=== PATIENT | female | born 1960 | race Caucasian/White ===

== ENCOUNTER 2017-06-06 10:54 | Inpatient (IN) | payer MEDICARE, MEDICAID ==
[~2017-06-06] VITALS: Ht 5619.3 cm; Wt 135.7 kg
[~2017-06-06 10:54] MED LIST: ALBU8HFA PO; APIX5TAB3 PO; ARIP10TA15 PO; BUS15T PO; CLOP75TA15 PO; DOXE50CA4 PO; EZET10TA14 PO; FURO-150 PO; GABA-532 PO; LEVO25TA2 PO; NEBI10TA4 PO; POTA8CAP9 PO; ROPI2TAB4 PO; SERT100T PO; SIMV40TA4 PO; TIZA4TAB11 PO
[2017-06-06] MEDS ORDERED: HYDROmorphone 1 mg/ml syringe IV ONE (11:20)
[2017-06-06] MEDS ORDERED: ondansetron/PF 4mg/2ml inj IV ONE (11:20)
[2017-06-06 11:36] LABS: BASOPHILS # (AUTO) 0.1 X10'3 (0-0.2); BASOPHILS % (AUTO) 1.4 % (0-1); EOSINOPHILS # (AUTO) 0.1 X10'3 (0-0.9); EOSINOPHILS % (AUTO) 1.4 % (0-6); HEMATOCRIT 39.9 % (35.0-45.0); HEMOGLOBIN 13.9 g/dl (12.0-16.0); LYMPHOCYTES # (AUTO) 1.5 X10'3 (1.1-4.8); LYMPHOCYTES % (AUTO) 20.1 % (21-51); MEAN CORPUSCULAR HEMOGLOBIN 29.4 PG (27.0-31.0); MEAN CORPUSCULAR HGB CONC 34.9 % (33.0-36.5); MEAN CORPUSCULAR VOLUME 84.3 FL (78-98); MEAN PLATELET VOLUME 8.8 FL (7.4-10.4); MONOCYTES # (AUTO) 0.2 X10'3 (0-0.9); MONOCYTES % (AUTO) 2.2 % (2-12); NEUTROPHILS # (AUTO) 5.5 X10'3 (1.8-7.7); NEUTROPHILS % (AUTO) 74.9 % (42-75); PLATELET COUNT 153 X10'3 (140-440); RED BLOOD COUNT 4.73 X10'6 (4.20-5.60); RED CELL DISTRIBUTION WIDTH 15.8 % (11.5-14.5); WHITE BLOOD COUNT 7.4 X10'3 (4.5-11.0)
[2017-06-06 11:46] LABS: PARTIAL THROMBOPLASTIN TIME 31 SECONDS (22-32); PROTHROMBIN TIME 10.7 SECONDS (9.0-12.0)
[2017-06-06 11:51] LABS: ALANINE AMINOTRANSFERASE 29 U/L (12-78); ALBUMIN 3.6 G/DL (3.4-5.0); ALBUMIN/GLOBULIN RATIO 0.8 (1.1-1.5); ALKALINE PHOSPHATASE 86 IU/L (46-116); ANION GAP 6 (8-16); ASPARTATE AMINO TRANSFERASE 20 U/L (10-37); BILIRUBIN,TOTAL 0.6 MG/DL (0.1-1.0); BLOOD UREA NITROGEN 18 MG/DL (7-18); CALCIUM 8.9 MG/DL (8.5-10.1); CHLORIDE 107 MMOL/L (99-107); GLUCOSE 110 MG/DL (70-104); SODIUM 141 MMOL/L (135-145); TOTAL CARBON DIOXIDE 28.1 MMOL/L (24-32); eGFR 57 ML/MIN
[2017-06-06] MEDS ORDERED: HYDROmorphone 2mg/ml vial IV ONE (11:55)
[2017-06-06 12:03] LABS: CLARITY,URINE Clear (Clear); COLOR,URINE Yellow (Yellow); GLUCOSE, URINE Negative (Neg); KETONES,URINE Negative (Neg); LEUKOCYTE ESTERASE ,URINE Negative (Neg); NITRITES, URINE Negative (Neg); OCCULT BLOOD,URINE Negative (Neg); PH,URINE 5.5 (4.8-8.0); PROTEIN,URINE Negative (Neg); UA COLLECTION TYPE CLN CATCH MIDSTREAM
[2017-06-06] MEDS ORDERED: ondansetron/PF 4mg/2ml inj IV PRN (13:05)
[2017-06-06] MEDS ORDERED: diphenhydrAMINE 25mg capsule PO PRN (13:05)
[2017-06-06] MEDS ORDERED: tizanidine 4mg tablet PO PRN (13:05)
[2017-06-06] MEDS ORDERED: magnesium 4gm in 100ml NS 100 ML IV PRN (13:05)
[2017-06-06] MEDS ORDERED: potassium Cl 40MEQ/NS 500ml 500 ML IV PRN ×2 (13:05)
[2017-06-06] MEDS ORDERED: HYDROcodone/acetaminophen 5mg/325mg tablet PO PRN (13:05)
[2017-06-06] MEDS ORDERED: acetaminophen 325mg tablet PO PRN ×2 (13:05)
[2017-06-06] MEDS ORDERED: magnesium Cl slow-release 64mg tablet PO PRN (13:05)
[2017-06-06] MEDS ORDERED: magnesium 2GM in 50ml NS 50 ML IV PRN (13:05)
[2017-06-06] MEDS ORDERED: non-formulary drug (albuterol inhaler (Pro-Air Inhaler) 2 PUFFS) PO PRN (13:05)
[2017-06-06] MEDS ORDERED: morphine 2 MG/ML inj. syringe IV PRN (13:05)
[2017-06-06] MEDS ORDERED: magnesium hydroxide 30ml (MOM) UD suspension PO PRN (13:05)
[2017-06-06] MEDS ORDERED: potassium Cl 20 mEq SR tablet PO PRN ×2 (13:05)
[2017-06-06] MEDS ORDERED: mag hydrox/Alum hydrox/simeth 30ml oral suspension PO PRN (13:05)
[2017-06-06] MEDS ORDERED: albuterol 2.5 MG/3 ML nebule NEB PRN (13:25)
[2017-06-06] MEDS: HYDROmorphone 2mg/ml vial IV PRN (16:02)
[2017-06-06 17:00] VITALS: BP 152/83
[2017-06-06 18:30] VITALS: BP 112/91
[2017-06-06] MEDS ORDERED: hydrALAZINE 20mg/ml inj. IV PRN (19:25)
[2017-06-06] MEDS: ROPINIRole 1mg tablet PO SCH (20:50)
[2017-06-06] MEDS: gabapentin 300mg capsule PO SCH (20:50)
[2017-06-06] MEDS: docusate sod 100mg capsule PO SCH (20:50)
[2017-06-06] MEDS: busPIRone 15mg tablet PO SCH (20:50)
[2017-06-06] MEDS: atorvastatin 20mg tablet PO SCH (20:50)
[2017-06-06] MEDS: HYDROcodone/acetaminophen 10/325mg tab PO PRN (20:51)
[2017-06-06] MEDS: apixaban 5mg tablet PO SCH (20:59)
[2017-06-06] MEDS: doxepin 25mg capsule PO SCH (20:59)
[2017-06-06] MEDS ORDERED: non-formulary drug (Ropinirole Hcl (Requip) 1 TAB) PO SCH (21:00)
[2017-06-06] MEDS ORDERED: non-formulary drug (Doxepin HCl 1 CAP) PO SCH (21:00)
[2017-06-06 23:00] VITALS: BP 141/82
[2017-06-07 03:00] VITALS: BP 173/80
[2017-06-07] MEDS: HYDROcodone/acetaminophen 10/325mg tab PO PRN ×4 (05:25→20:47)
[2017-06-07 06:00] VITALS: BP 157/76
[2017-06-07 06:14] LABS: BASOPHILS % (AUTO) 0.4 % (0-1); EOSINOPHILS # (AUTO) 0.2 X10'3 (0-0.9); EOSINOPHILS % (AUTO) 2.3 % (0-6); HEMATOCRIT 40.3 % (35.0-45.0); LYMPHOCYTES # (AUTO) 1.3 X10'3 (1.1-4.8); LYMPHOCYTES % (AUTO) 18.2 % (21-51); MEAN CORPUSCULAR HEMOGLOBIN 29.2 PG (27.0-31.0); MEAN CORPUSCULAR HGB CONC 34.7 % (33.0-36.5); MEAN CORPUSCULAR VOLUME 84.1 FL (78-98); MEAN PLATELET VOLUME 8.6 FL (7.4-10.4); MONOCYTES # (AUTO) 0.4 X10'3 (0-0.9); MONOCYTES % (AUTO) 5.1 % (2-12); NEUTROPHILS # (AUTO) 5.3 X10'3 (1.8-7.7); PLATELET COUNT 171 X10'3 (140-440); RED BLOOD COUNT 4.79 X10'6 (4.20-5.60); RED CELL DISTRIBUTION WIDTH 15.6 % (11.5-14.5); WHITE BLOOD COUNT 7.2 X10'3 (4.5-11.0)
[2017-06-07 06:24] LABS: ALBUMIN 3.5 G/DL (3.4-5.0); ANION GAP 7 (8-16); BLOOD UREA NITROGEN 16 MG/DL (7-18); CALCIUM 9.2 MG/DL (8.5-10.1); CHLORIDE 106 MMOL/L (99-107); GLUCOSE 111 MG/DL (70-104); MAGNESIUM 1.8 MG/DL (1.5-2.4); POTASSIUM 4.5 MMOL/L (3.5-5.1); SODIUM 142 MMOL/L (135-145); TOTAL CARBON DIOXIDE 29.2 MMOL/L (24-32); eGFR 73 ML/MIN
[2017-06-07] MEDS: K and/or MAG REPLACEMENT MC SCH (06:59)
[2017-06-07] MEDS: potassium chloride 8mEq ER tablet PO SCH (07:00)
[2017-06-07] MEDS ORDERED: SERTRALINE HCL 200 MG PO SCH (08:00)
[2017-06-07] MEDS ORDERED: POTASSIUM CHLORIDE 8 MEQ PO SCH (08:00)
[2017-06-07] MEDS ORDERED: ARIPIPRAZOLE 20 MG PO SCH (08:00)
[2017-06-07] MEDS ORDERED: NEBIVOLOL HCL 10 MG PO SCH (08:00)
[2017-06-07] MEDS: aripiprazole 5mg tablet PO SCH (08:08)
[2017-06-07] MEDS: furosemide 20MG tablet PO SCH (08:09)
[2017-06-07] MEDS: sertraline 50mg tablet PO SCH (08:09)
[2017-06-07] MEDS: docusate sod 100mg capsule PO SCH ×2 (08:09→20:45)
[2017-06-07] MEDS: ezetimibe 10mg tablet PO SCH (08:10)
[2017-06-07] MEDS: busPIRone 15mg tablet PO SCH ×2 (08:10→20:46)
[2017-06-07] MEDS: gabapentin 300mg capsule PO SCH ×3 (08:10→20:46)
[2017-06-07] MEDS: clopidogrel 75mg tablet PO SCH (08:10)
[2017-06-07] MEDS: levoTHYROXINE 25mcg tablet PO SCH (08:11)
[2017-06-07] MEDS: apixaban 5mg tablet PO SCH ×2 (08:13→20:46)
[2017-06-07] MEDS ORDERED: FLU VACC QS2017-18 36MOS UP/PF 60 MCG/0.5 ML SYRINGE IMVAC ONE (10:00)
[2017-06-07] MEDS ORDERED: pneumococcal 23-VAL P-sac vacc 25 mcg/0.5ml vial IMVAC ONE (10:00)
[2017-06-07 11:00] VITALS: BP 124/67
[2017-06-07 15:00] VITALS: BP 148/74
[2017-06-07 19:00] VITALS: BP 109/61
[2017-06-07] MEDS: atorvastatin 20mg tablet PO SCH (20:45)
[2017-06-07] MEDS: ROPINIRole 1mg tablet PO SCH (20:45)
[2017-06-07] MEDS: doxepin 25mg capsule PO SCH (20:47)
[2017-06-07 23:00] VITALS: BP 134/71
[2017-06-08] MEDS: HYDROcodone/acetaminophen 10/325mg tab PO PRN ×2 (02:36→14:02)
[2017-06-08 03:00] VITALS: BP 151/74
[2017-06-08 06:00] VITALS: BP 142/84
[2017-06-08] MEDS: gabapentin 300mg capsule PO SCH ×3 (07:53→21:25)
[2017-06-08] MEDS: clopidogrel 75mg tablet PO SCH (07:53)
[2017-06-08] MEDS: docusate sod 100mg capsule PO SCH ×2 (07:53→19:16)
[2017-06-08] MEDS: aripiprazole 5mg tablet PO SCH (07:53)
[2017-06-08] MEDS: levoTHYROXINE 25mcg tablet PO SCH (07:53)
[2017-06-08] MEDS: apixaban 5mg tablet PO SCH ×2 (07:54→19:17)
[2017-06-08] MEDS: ezetimibe 10mg tablet PO SCH (07:54)
[2017-06-08] MEDS: busPIRone 15mg tablet PO SCH ×2 (07:54→19:16)
[2017-06-08] MEDS: potassium chloride 8mEq ER tablet PO SCH (07:54)
[2017-06-08] MEDS: furosemide 20MG tablet PO SCH (07:54)
[2017-06-08] MEDS: sertraline 50mg tablet PO SCH (07:54)
[2017-06-08] MEDS: K and/or MAG REPLACEMENT MC SCH (08:00)
[2017-06-08] MEDS: LORazepam 0.5 MG tablet PO PRN ×2 (09:17→19:17)
[2017-06-08 11:00] VITALS: BP 144/59
[2017-06-08 19:00] VITALS: BP 128/86
[2017-06-08] MEDS: atorvastatin 20mg tablet PO SCH (21:25)
[2017-06-08] MEDS: ROPINIRole 1mg tablet PO SCH (21:26)
[2017-06-08] MEDS: doxepin 25mg capsule PO SCH (21:27)
[2017-06-08 23:00] VITALS: BP 126/64
[2017-06-08 23:59] LABS: BASOPHILS # (AUTO) 0.1 X10'3 (0-0.2); BASOPHILS % (AUTO) 0.7 % (0-1); EOSINOPHILS # (AUTO) 0.2 X10'3 (0-0.9); EOSINOPHILS % (AUTO) 2.5 % (0-6); HEMATOCRIT 40.3 % (35.0-45.0); HEMOGLOBIN 13.5 g/dl (12.0-16.0); MEAN CORPUSCULAR HEMOGLOBIN 28.5 PG (27.0-31.0); MEAN CORPUSCULAR HGB CONC 33.6 % (33.0-36.5); MEAN PLATELET VOLUME 8.6 FL (7.4-10.4); MONOCYTES # (AUTO) 0.6 X10'3 (0-0.9); MONOCYTES % (AUTO) 7.9 % (2-12); NEUTROPHILS % (AUTO) 63.9 % (42-75); PLATELET COUNT 145 X10'3 (140-440); RED BLOOD COUNT 4.74 X10'6 (4.20-5.60); RED CELL DISTRIBUTION WIDTH 15.4 % (11.5-14.5); WHITE BLOOD COUNT 7.8 X10'3 (4.5-11.0)
[2017-06-09] VITALS (7 sets, daily range): BP systolic 99–150; BP diastolic 62–106
[2017-06-09 00:05] LABS: ALBUMIN 3.2 G/DL (3.4-5.0); ANION GAP 5 (8-16); BLOOD UREA NITROGEN 16 MG/DL (7-18); BUN/CREATININE RATIO 17.8 (6.6-38.0); CHLORIDE 105 MMOL/L (99-107); GLUCOSE 114 MG/DL (70-104); MAGNESIUM 1.7 MG/DL (1.5-2.4); POTASSIUM 3.9 MMOL/L (3.5-5.1); SODIUM 140 MMOL/L (135-145); TOTAL CARBON DIOXIDE 29.8 MMOL/L (24-32); eGFR 64 ML/MIN
[2017-06-09 06:18] LABS: BASOPHILS % (AUTO) 0.6 % (0-1); EOSINOPHILS # (AUTO) 0.2 X10'3 (0-0.9); EOSINOPHILS % (AUTO) 3.9 % (0-6); HEMATOCRIT 38.7 % (35.0-45.0); HEMOGLOBIN 13.3 g/dl (12.0-16.0); LYMPHOCYTES # (AUTO) 1.7 X10'3 (1.1-4.8); MEAN CORPUSCULAR HEMOGLOBIN 28.9 PG (27.0-31.0); MEAN CORPUSCULAR HGB CONC 34.3 % (33.0-36.5); MEAN CORPUSCULAR VOLUME 84.4 FL (78-98); MEAN PLATELET VOLUME 8.7 FL (7.4-10.4); MONOCYTES # (AUTO) 0.5 X10'3 (0-0.9); MONOCYTES % (AUTO) 7.2 % (2-12); NEUTROPHILS # (AUTO) 3.9 X10'3 (1.8-7.7); NEUTROPHILS % (AUTO) 61.3 % (42-75); PLATELET COUNT 159 X10'3 (140-440); RED BLOOD COUNT 4.59 X10'6 (4.20-5.60); RED CELL DISTRIBUTION WIDTH 15.8 % (11.5-14.5); WHITE BLOOD COUNT 6.3 X10'3 (4.5-11.0)
[2017-06-09 07:28] LABS: ALBUMIN 3.2 G/DL (3.4-5.0); ANION GAP 10 (8-16); BLOOD UREA NITROGEN 15 MG/DL (7-18); CHLORIDE 105 MMOL/L (99-107); GLUCOSE 109 MG/DL (70-104); MAGNESIUM 1.6 MG/DL (1.5-2.4); POTASSIUM 3.7 MMOL/L (3.5-5.1); SODIUM 142 MMOL/L (135-145); TOTAL CARBON DIOXIDE 26.7 MMOL/L (24-32); eGFR 57 ML/MIN
[2017-06-09] MEDS: busPIRone 15mg tablet PO SCH ×2 (07:33→20:02)
[2017-06-09] MEDS: sertraline 50mg tablet PO SCH (07:33)
[2017-06-09] MEDS: apixaban 5mg tablet PO SCH (07:33)
[2017-06-09] MEDS: aripiprazole 5mg tablet PO SCH (07:33)
[2017-06-09] MEDS: potassium chloride 8mEq ER tablet PO SCH (07:33)
[2017-06-09] MEDS: docusate sod 100mg capsule PO SCH ×2 (07:33→20:03)
[2017-06-09] MEDS: clopidogrel 75mg tablet PO SCH (07:34)
[2017-06-09] MEDS: ezetimibe 10mg tablet PO SCH (07:34)
[2017-06-09] MEDS: levoTHYROXINE 25mcg tablet PO SCH (07:34)
[2017-06-09] MEDS: gabapentin 300mg capsule PO SCH ×3 (07:34→21:23)
[2017-06-09] MEDS: furosemide 20MG tablet PO SCH (07:34)
[2017-06-09] MEDS: LORazepam 0.5 MG tablet PO PRN ×2 (07:36→17:15)
[2017-06-09] MEDS: K and/or MAG REPLACEMENT MC SCH (08:00)
[2017-06-09] MEDS: HYDROcodone/acetaminophen 10/325mg tab PO PRN (11:33)
[2017-06-09] MEDS: nystatin 15 GM powder TP SCH ×2 (12:04→21:23)
[2017-06-09] MEDS ORDERED: heparin 10,000 units/1 ML INJ IV ONE (15:05)
[2017-06-09] MEDS ORDERED: heparin 10,000 units/1 ML INJ IV PRN (15:05)
[2017-06-09] MEDS: HYDROmorphone 2mg/ml vial IV PRN (20:02)
[2017-06-09] MEDS: doxepin 25mg capsule PO SCH (21:22)
[2017-06-09] MEDS: atorvastatin 20mg tablet PO SCH (21:23)
[2017-06-09] MEDS: ROPINIRole 1mg tablet PO SCH (21:23)
[2017-06-10 06:00] VITALS: BP 125/63
[2017-06-10] MEDS: HYDROmorphone 1 mg/ml syringe IV PRN ×2 (06:04→11:07)
[2017-06-10 07:49] LABS: BASOPHILS % (AUTO) 0.4 % (0-1); EOSINOPHILS # (AUTO) 0.3 X10'3 (0-0.9); EOSINOPHILS % (AUTO) 3.6 % (0-6); HEMATOCRIT 39.4 % (35.0-45.0); HEMOGLOBIN 13.4 g/dl (12.0-16.0); LYMPHOCYTES # (AUTO) 1.8 X10'3 (1.1-4.8); LYMPHOCYTES % (AUTO) 25.1 % (21-51); MEAN CORPUSCULAR HGB CONC 34.1 % (33.0-36.5); MEAN PLATELET VOLUME 9.1 FL (7.4-10.4); MONOCYTES # (AUTO) 0.4 X10'3 (0-0.9); MONOCYTES % (AUTO) 6.4 % (2-12); NEUTROPHILS # (AUTO) 4.5 X10'3 (1.8-7.7); NEUTROPHILS % (AUTO) 64.5 % (42-75); PLATELET COUNT 146 X10'3 (140-440); RED BLOOD COUNT 4.64 X10'6 (4.20-5.60); RED CELL DISTRIBUTION WIDTH 15.9 % (11.5-14.5)
[2017-06-10] MEDS: K and/or MAG REPLACEMENT MC SCH (08:00)
[2017-06-10 08:01] LABS: ALBUMIN 3.3 G/DL (3.4-5.0); ANION GAP 9 (8-16); BLOOD UREA NITROGEN 14 MG/DL (7-18); CHLORIDE 106 MMOL/L (99-107); MAGNESIUM 1.6 MG/DL (1.5-2.4); POTASSIUM 3.9 MMOL/L (3.5-5.1); SODIUM 143 MMOL/L (135-145); TOTAL CARBON DIOXIDE 28.1 MMOL/L (24-32); eGFR 57 ML/MIN
[2017-06-10 08:04] LABS: GLUCOSE 106 MG/DL (70-104)
[2017-06-10] MEDS: aripiprazole 5mg tablet PO SCH (08:21)
[2017-06-10] MEDS: potassium chloride 8mEq ER tablet PO SCH (08:22)
[2017-06-10] MEDS: furosemide 20MG tablet PO SCH (08:22)
[2017-06-10] MEDS: levoTHYROXINE 25mcg tablet PO SCH (08:22)
[2017-06-10] MEDS: ezetimibe 10mg tablet PO SCH (08:22)
[2017-06-10] MEDS: docusate sod 100mg capsule PO SCH (08:23)
[2017-06-10] MEDS: gabapentin 300mg capsule PO SCH ×2 (08:23→12:50)
[2017-06-10] MEDS: sertraline 50mg tablet PO SCH (08:23)
[2017-06-10] MEDS: busPIRone 15mg tablet PO SCH (08:23)
[2017-06-10] MEDS: HYDROcodone/acetaminophen 10/325mg tab PO PRN ×2 (08:25→12:51)
[2017-06-10] MEDS: nystatin 15 GM powder TP SCH ×2 (08:25→12:52)
[2017-06-10 11:00] VITALS: BP 109/56
[2017-06-10 15:00] VITALS: BP 104/44
[2017-06-10] MEDS: LORazepam 0.5 MG tablet PO PRN (15:06)
== END 2017-06-10 17:36 | disposition short-term general hospital (02) | DRG 315 ==
LOC: ER 10:55 → ED HOLD 13:02 → EDBEDREQTM 14:13 → PCU 3S 17:30
PROVIDERS: ADMIT Internal Medicine; ATTEND Internal Medicine
DX: T82.898A Other specified complication of vascular prosthetic devices, implants and grafts, initial encounter (principal); Z68.42 Body mass index [BMI] 45.0-49.9, adult; E11.22 Type 2 diabetes mellitus with diabetic chronic kidney disease; E11.51 Type 2 diabetes mellitus with diabetic peripheral angiopathy without gangrene; Y82.8 Other medical devices associated with adverse incidents; E03.9 Hypothyroidism, unspecified; E66.9 Obesity, unspecified; E78.5 Hyperlipidemia, unspecified; F32.9 Major depressive disorder, single episode, unspecified; F41.9 Anxiety disorder, unspecified; I12.9 Hypertensive chronic kidney disease with stage 1 through stage 4 chronic kidney disease, or unspecified chronic kidney disease; I99.8 Other disorder of circulatory system; J44.9 Chronic obstructive pulmonary disease, unspecified; N18.9 Chronic kidney disease, unspecified; Z79.899 Other long term (current) drug therapy; Z79.01 Long term (current) use of anticoagulants; Z88.5 Allergy status to narcotic agent; Z87.19 Personal history of other diseases of the digestive system; Z87.891 Personal history of nicotine dependence; Z83.3 Family history of diabetes mellitus; Z80.9 Family history of malignant neoplasm, unspecified; Y92.89 Other specified places as the place of occurrence of the external cause; Z23 Encounter for immunization
CPT/HCPCS: 36415; 71045; 80048; 80053; 81003; 83735; 85025; 85610; 85730; 87070; 90732; 93005; 94760; 96374; 96375; 99285; J1170; J1644; J2270; J2405; Q2037

== ENCOUNTER 2017-06-13 13:49 | Inpatient (IN) | payer MEDICARE, MEDICAID ==
[2017-06-13 15:15] VITALS: BP 141/88
[2017-06-13] MEDS ORDERED: HYDROmorphone 1 mg/ml syringe IV PRN (17:35)
[2017-06-13] MEDS ORDERED: magnesium hydroxide 30ml (MOM) UD suspension PO PRN (17:35)
[2017-06-13] MEDS ORDERED: insulin Lispro (HumaLOG) vial - multi-dose SQ SCH (17:35)
[2017-06-13] MEDS ORDERED: ondansetron/PF 4mg/2ml inj IV PRN (17:35)
[2017-06-13] MEDS ORDERED: acetaminophen 325mg tablet PO PRN ×2 (17:35)
[2017-06-13] MEDS ORDERED: dextrose ORAL solution 15 GM/59 ML bottle PO PRN ×2 (17:35)
[2017-06-13] MEDS ORDERED: MESSAGE TO PHARMACY PO ONE (17:35)
[2017-06-13] MEDS ORDERED: mag hydrox/Alum hydrox/simeth 30ml oral suspension PO PRN (17:35)
[2017-06-13] MEDS ORDERED: glucagon, human recombinant 1mg kit SUBCUT PRN (17:35)
[2017-06-13] MEDS ORDERED: dextrose 50%-water 50ml dispensing syringe IV PRN ×2 (17:35)
[2017-06-13] MEDS ORDERED: bisacodyl 10mg suppository rectal RC PRN (17:35)
[2017-06-13] MEDS ORDERED: tizanidine 4mg tablet PO PRN (17:40)
[2017-06-13] MEDS ORDERED: non-formulary drug (albuterol inhaler (Pro-Air Inhaler) 2 PUFFS) PO PRN (17:40)
[2017-06-13] MEDS ORDERED: albuterol 2.5 MG/3 ML nebule NEB PRN (17:55)
[2017-06-13] MEDS: HYDROmorphone 2mg tablet PO PRN (18:38)
[2017-06-13 20:00] VITALS: BP 135/70
[2017-06-13] MEDS: docusate sod 100mg capsule PO SCH (20:00)
[2017-06-13] MEDS ORDERED: doxepin 25mg capsule PO SCH (21:00)
[2017-06-13] MEDS ORDERED: ROPINIRole 1mg tablet PO SCH (21:00)
[2017-06-13] MEDS ORDERED: atorvastatin 20mg tablet PO SCH (21:00)
[2017-06-13] MEDS ORDERED: non-formulary drug (Doxepin HCl 1 CAP) PO SCH (21:00)
[2017-06-13] MEDS ORDERED: non-formulary drug (Ropinirole Hcl (Requip) 1 TAB) PO SCH (21:00)
[2017-06-13] MEDS ORDERED: insulin glargine (Lantus) pen - multi-dose SQ SCH (21:00)
[2017-06-13] MEDS: gabapentin 400mg capsule PO SCH (21:18)
[2017-06-13] MEDS: apixaban 5mg tablet PO SCH (21:18)
[2017-06-13] MEDS: busPIRone 15mg tablet PO SCH (21:18)
[2017-06-14] VITALS: BP 120/71
[2017-06-14] MEDS: HYDROmorphone 2mg tablet PO PRN ×3 (03:08→11:21)
[2017-06-14 06:48] LABS: ALBUMIN 3.3 G/DL (3.4-5.0); ANION GAP 13 (8-16); BLOOD UREA NITROGEN 17 MG/DL (7-18); CHLORIDE 105 MMOL/L (99-107); GLUCOSE 132 MG/DL (70-104); POTASSIUM 4.3 MMOL/L (3.5-5.1); SODIUM 142 MMOL/L (135-145); TOTAL CARBON DIOXIDE 24.4 MMOL/L (24-32); eGFR 57 ML/MIN
[2017-06-14 07:00] VITALS: BP 123/73
[2017-06-14] MEDS: apixaban 5mg tablet PO SCH (07:22)
[2017-06-14] MEDS: gabapentin 400mg capsule PO SCH (07:23)
[2017-06-14] MEDS: busPIRone 15mg tablet PO SCH (07:23)
[2017-06-14 07:27] LABS: BASOPHILS # (AUTO) 0.1 X10'3 (0-0.2); EOSINOPHILS # (AUTO) 0.3 X10'3 (0-0.9); HEMATOCRIT 37.1 % (35.0-45.0); HEMOGLOBIN 12.6 g/dl (12.0-16.0); LYMPHOCYTES # (AUTO) 1.3 X10'3 (1.1-4.8); LYMPHOCYTES % (AUTO) 20.2 % (21-51); MEAN CORPUSCULAR HGB CONC 34.1 % (33.0-36.5); MEAN CORPUSCULAR VOLUME 85.1 FL (78-98); MEAN PLATELET VOLUME 8.7 FL (7.4-10.4); MONOCYTES # (AUTO) 0.4 X10'3 (0-0.9); MONOCYTES % (AUTO) 6.4 % (2-12); NEUTROPHILS # (AUTO) 4.5 X10'3 (1.8-7.7); NEUTROPHILS % (AUTO) 68.4 % (42-75); PLATELET COUNT 152 X10'3 (140-440); RED BLOOD COUNT 4.36 X10'6 (4.20-5.60); RED CELL DISTRIBUTION WIDTH 15.7 % (11.5-14.5); WHITE BLOOD COUNT 6.7 X10'3 (4.5-11.0)
[2017-06-14] MEDS: docusate sod 100mg capsule PO SCH (07:27)
[2017-06-14] MEDS ORDERED: clopidogrel 75mg tablet PO SCH (08:00)
[2017-06-14] MEDS ORDERED: furosemide 20MG tablet PO SCH (08:00)
[2017-06-14] MEDS ORDERED: aripiprazole 5mg tablet PO SCH (08:00)
[2017-06-14] MEDS ORDERED: NEBIVOLOL HCL 10 MG PO SCH (08:00)
[2017-06-14] MEDS ORDERED: ezetimibe 10mg tablet PO SCH (08:00)
[2017-06-14] MEDS ORDERED: SERTRALINE HCL 200 MG PO SCH (08:00)
[2017-06-14] MEDS ORDERED: sertraline 50mg tablet PO SCH (08:00)
[2017-06-14] MEDS ORDERED: levoTHYROXINE 25mcg tablet PO SCH (08:00)
[2017-06-14] MEDS ORDERED: ARIPIPRAZOLE 20 MG PO SCH (08:00)
[2017-06-14] MEDS ORDERED: GABA-534 PO (13:19)
[2017-06-14] MEDS ORDERED: HYDR2TAB7 PO (13:19)
[2017-06-14] MEDS ORDERED: LEVO25TA7 PO (13:19)
== END 2017-06-14 13:54 | disposition home or self-care (01) | DRG 300 ==
LOC: SUR 3N 15:58
PROVIDERS: ADMIT Family Medicine; ATTEND Family Medicine
DX: I73.9 Peripheral vascular disease, unspecified (principal); I74.5 Embolism and thrombosis of iliac artery; J96.10 Chronic respiratory failure, unspecified whether with hypoxia or hypercapnia; Z99.81 Dependence on supplemental oxygen; E66.01 Morbid (severe) obesity due to excess calories; N18.3 Chronic kidney disease, stage 3 (moderate); R73.9 Hyperglycemia, unspecified; F41.9 Anxiety disorder, unspecified; E03.9 Hypothyroidism, unspecified; E78.5 Hyperlipidemia, unspecified; T82.868D Thrombosis due to vascular prosthetic devices, implants and grafts, subsequent encounter; F31.9 Bipolar disorder, unspecified; J44.9 Chronic obstructive pulmonary disease, unspecified; R73.03 Prediabetes; F12.90 Cannabis use, unspecified, uncomplicated; Z90.49 Acquired absence of other specified parts of digestive tract; Z88.6 Allergy status to analgesic agent; Z79.899 Other long term (current) drug therapy; Z87.891 Personal history of nicotine dependence; Y92.89 Other specified places as the place of occurrence of the external cause
CPT/HCPCS: 36415; 80048; 82948; 83036; 84439; 84443; 85025; 87070; J1815

== ENCOUNTER 2017-12-22 06:54 | Inpatient (IN) | payer MEDICARE, MEDICAID ==
[2017-12-18 13:19] LABS: BASOPHILS % (AUTO) 0.5 % (0-1); EOSINOPHILS # (AUTO) 0.2 X10'3 (0-0.9); EOSINOPHILS % (AUTO) 3.3 % (0-6); LYMPHOCYTES # (AUTO) 1.6 X10'3 (1.1-4.8); LYMPHOCYTES % (AUTO) 22.2 % (21-51); MEAN CORPUSCULAR HEMOGLOBIN 29.4 PG (27.0-31.0); MEAN CORPUSCULAR HGB CONC 33.5 % (33.0-36.5); MEAN CORPUSCULAR VOLUME 87.7 FL (78-98); MONOCYTES # (AUTO) 0.4 X10'3 (0-0.9); MONOCYTES % (AUTO) 5.6 % (2-12); NEUTROPHILS # (AUTO) 5.2 X10'3 (1.8-7.7); NEUTROPHILS % (AUTO) 68.4 % (42-75); PRE OP HEMATOCRIT 36.6 % (35.0-45.0); PRE OP HEMOGLOBIN 12.3 g/dL (12.0-16.0); PRE OP PLATELET COUNT 173 X10'3 (140-440); RED BLOOD COUNT 4.17 X10'6 (4.20-5.60); RED CELL DISTRIBUTION WIDTH 14.9 % (11.5-14.5)
[2017-12-18 13:23] LABS: CLARITY,URINE CLEAR (Clear); COLOR,URINE YELLOW (Yellow); GLUCOSE, URINE NEGATIVE (Neg); KETONES,URINE NEGATIVE (Neg); LEUKOCYTE ESTERASE ,URINE NEGATIVE (Neg); NITRITES, URINE NEGATIVE (Neg); OCCULT BLOOD,URINE NEGATIVE (Neg); PROTEIN,URINE NEGATIVE (Neg); UROBILINOGEN,URINE 0.2 E.U/dL (0.2-1.0)
[2017-12-18 13:24] LABS: UA COLLECTION TYPE CLN CATCH MIDSTREAM
[2017-12-18 13:29] LABS: PRE OP PROTIME 10.1 SECONDS (9.0-12.0)
[2017-12-18 13:41] LABS: ALBUMIN 3.2 G/DL (3.4-5.0); ALBUMIN/GLOBULIN RATIO 0.7 (1.1-1.5); ALKALINE PHOSPHATASE 111 IU/L (46-116); BLOOD UREA NITROGEN 13 MG/DL (7-18); BUN/CREATININE RATIO 15.1 (6.6-38.0); CHLORIDE 105 MMOL/L (99-107); CREATININE 0.86 MG/DL (0.40-0.90); PRE OP ALT 33 U/L (30-65); PRE OP ANION GAP 6 (8-16); PRE OP AST 22 U/L (10-37); PRE OP BILIRUB, TOTAL 0.3 MG/DL (0.0-1.0); PRE OP GLUCOSE 94 MG/DL (70-104); PRE OP POTASSIUM 4.4 MMOL/L (3.4-5.1); PRE OP SODIUM 137 MMOL/L (135-145); TOTAL CARBON DIOXIDE 26.3 MMOL/L (24-32); TOTAL PROTEIN 7.6 G/DL (6.4-8.2); eGFR 68 ML/MIN
[~2017-12-22] VITALS: Ht 170.2 cm; Wt 136.8 kg
[~2017-12-22 06:54] MED LIST changes: +ALBU18HF2 IH; -ALBU8HFA PO; -ARIP10TA15 PO; +ARIP30TA11 PO; -BUS15T PO; +BUSP15TA3 PO; -CLOP75TA15 PO; +CLOP75TA35 PO; -EZET10TA14 PO; -GABA-532 PO; +GABA300C PO; +IBUP-1985 PO; +LAMO100T89 PO; -LEVO25TA2 PO; -NEBI10TA4 PO; -POTA8CAP9 PO; +POTA8TAB3 PO; -ROPI2TAB4 PO; -SERT100T PO; +SERT50TA10 PO; +SIMV40TA PO; -SIMV40TA4 PO; -TIZA4TAB11 PO; +ceFAZolin inj. 3,000 MG in normal saline 100ml IV soln 100 ML IV ONE; +famotidine 20mg tablet PO ONE; +ringers solution, lacted 1,000 ML IV SCH
[2017-12-22] MEDS ORDERED: LIDOcaine 1% (10mg/ml) 2ml vial ONE (06:59)
[2017-12-22] MEDS ORDERED: heparin 10,000 units/1 ML INJ ONE (07:05)
[2017-12-22 07:15] VITALS: BP 129/80
[2017-12-22] MEDS ORDERED: pancuronium br 1mg/ml inj IV ONE (08:03)
[2017-12-22] MEDS ORDERED: ringers solution, lacted 1,000 ML IV SCH (08:07)
[2017-12-22] MEDS ORDERED: fentaNYL/PF 50MCG/1 ML 2ML syringe IV PRN ×2 (08:10)
[2017-12-22] MEDS ORDERED: FENTANYL-0.9 % NACL/PF 100 ML IV PRN (08:10)
[2017-12-22] MEDS ORDERED: hydrALAZINE 20mg/ml inj. IV PRN (08:10)
[2017-12-22] MEDS ORDERED: labetalol 20mg/4ml (5mg/ml) syringe IV PRN (08:10)
[2017-12-22] MEDS ORDERED: midazolam 100mg in NS 100ml 100 ML IV SCH (08:10)
[2017-12-22] MEDS ORDERED: ondansetron/PF 4mg/2ml inj IV PRN (08:10)
[2017-12-22] MEDS ORDERED: morphine 4 MG/ML inj SYRINge IV PRN ×2 (08:10)
== END 2017-12-22 12:45 | disposition home or self-care (01) | DRG 394 ==
LOC: PAS IN 06:54 → EDSTATUS 08:00
PROVIDERS: ADMIT Surgery; ATTEND Surgery
DX: K43.2 Incisional hernia without obstruction or gangrene (principal); Z68.42 Body mass index [BMI] 45.0-49.9, adult; E03.9 Hypothyroidism, unspecified; G43.909 Migraine, unspecified, not intractable, without status migrainosus; F43.10 Post-traumatic stress disorder, unspecified; I73.9 Peripheral vascular disease, unspecified; E78.5 Hyperlipidemia, unspecified; E66.9 Obesity, unspecified; F32.9 Major depressive disorder, single episode, unspecified; I10 Essential (primary) hypertension; I99.8 Other disorder of circulatory system; J44.9 Chronic obstructive pulmonary disease, unspecified; Z53.8 Procedure and treatment not carried out for other reasons; Z90.49 Acquired absence of other specified parts of digestive tract; Z79.82 Long term (current) use of aspirin; Z79.899 Other long term (current) drug therapy; Z79.02 Long term (current) use of antithrombotics/antiplatelets; Z88.5 Allergy status to narcotic agent; Z87.19 Personal history of other diseases of the digestive system
CPT/HCPCS: 36415; 71046; 80053; 81003; 84443; 85025; 85610; 85730; 86885; 86900; 86901; 86902; 86922; 87070; 93005; A7000; C1758; J0690; J1644; J3490; J7030; J7120

== ENCOUNTER 2017-12-28 11:45 | Inpatient (IN) | payer MEDICARE, MEDICAID ==
[~2017-12-28] VITALS: Ht 170.2 cm; Wt 141.1 kg
[~2017-12-28 11:45] MED LIST changes: -ceFAZolin inj. 3,000 MG in normal saline 100ml IV soln 100 ML IV ONE; -famotidine 20mg tablet PO ONE; -ringers solution, lacted 1,000 ML IV SCH
[2018-01-01 10:37] LABS: CLARITY,URINE CLEAR (Clear); COLOR,URINE YELLOW (Yellow); GLUCOSE, URINE NEGATIVE (Neg); KETONES,URINE NEGATIVE (Neg); LEUKOCYTE ESTERASE ,URINE NEGATIVE (Neg); NITRITES, URINE NEGATIVE (Neg); OCCULT BLOOD,URINE NEGATIVE (Neg); PROTEIN,URINE NEGATIVE (Neg); UROBILINOGEN,URINE 0.2 E.U/dL (0.2-1.0)
[2018-01-01 10:41] LABS: UA COLLECTION TYPE CLN CATCH MIDSTREAM
[2018-01-01 10:42] LABS: BASOPHILS % (AUTO) 0.4 % (0-1); EOSINOPHILS # (AUTO) 0.1 X10'3 (0-0.9); EOSINOPHILS % (AUTO) 1.7 % (0-6); HEMATOCRIT 43.4 % (35.0-45.0); HEMOGLOBIN 14.1 g/dl (12.0-16.0); LYMPHOCYTES # (AUTO) 1.5 X10'3 (1.1-4.8); MEAN CORPUSCULAR HEMOGLOBIN 28.5 PG (27.0-31.0); MEAN CORPUSCULAR HGB CONC 32.6 % (33.0-36.5); MEAN CORPUSCULAR VOLUME 87.6 FL (78-98); MEAN PLATELET VOLUME 8.9 FL (7.4-10.4); MONOCYTES # (AUTO) 0.4 X10'3 (0-0.9); MONOCYTES % (AUTO) 5.1 % (2-12); NEUTROPHILS # (AUTO) 6.5 X10'3 (1.8-7.7); NEUTROPHILS % (AUTO) 74.8 % (42-75); PLATELET COUNT 199 X10'3 (140-440); RED BLOOD COUNT 4.95 X10'6 (4.20-5.60); RED CELL DISTRIBUTION WIDTH 15.6 % (11.5-14.5); WHITE BLOOD COUNT 8.5 X10'3 (4.5-11.0)
[2018-01-01 10:43] LABS: PARTIAL THROMBOPLASTIN TIME 30 SECONDS (22-32); PROTHROMBIN TIME 10.5 SECONDS (9.0-12.0)
[2018-01-01 10:50] LABS: ALANINE AMINOTRANSFERASE 23 U/L (12-78); ALBUMIN 3.4 G/DL (3.4-5.0); ALBUMIN/GLOBULIN RATIO 0.7 (1.1-1.5); ALKALINE PHOSPHATASE 107 IU/L (46-116); ANION GAP 8 (8-16); ASPARTATE AMINO TRANSFERASE 18 U/L (10-37); BILIRUBIN,TOTAL 0.4 MG/DL (0.1-1.0); BLOOD UREA NITROGEN 13 MG/DL (7-18); BUN/CREATININE RATIO 14.3 (6.6-38.0); CALCIUM 8.9 MG/DL (8.5-10.1); CHLORIDE 104 MMOL/L (99-107); CREATININE 0.91 MG/DL (0.40-0.90); GLUCOSE 112 MG/DL (70-104); POTASSIUM 4.3 MMOL/L (3.5-5.1); SODIUM 137 MMOL/L (135-145); TOTAL CARBON DIOXIDE 25.5 MMOL/L (24-32); TOTAL PROTEIN 8.1 G/DL (6.4-8.2); eGFR 63 ML/MIN
[2018-01-05] VITALS (18 sets, daily range): BP systolic 115–163; BP diastolic 62–103
[2018-01-05] MEDS ORDERED: ringers solution, lacted 1,000 ML IV SCH (05:00)
[2018-01-05] MEDS ORDERED: famotidine 20mg tablet PO ONE (05:30)
[2018-01-05] MEDS ORDERED: ceFAZolin inj. 3,000 MG in normal saline 100ml IV soln 100 ML IV ONE (05:30)
[2018-01-05] MEDS ORDERED: albuterol 2.5 MG/3 ML nebule NEB ONE (05:30)
[2018-01-05] MEDS ORDERED: LIDOcaine 1% (10mg/ml) 2ml vial ONE (06:22)
[2018-01-05] MEDS ORDERED: heparin 10,000 units/1 ML INJ ONE (06:46)
[2018-01-05] MEDS ORDERED: desflurane 240ml liquid inh. IH ONE (09:00)
[2018-01-05] MEDS ORDERED: ondansetron/PF 4mg/2ml inj ONE (09:00)
[2018-01-05] MEDS ORDERED: labetalol 20mg/4ml (5mg/ml) syringe IV ONE (09:00)
[2018-01-05] MEDS ORDERED: MIDAZolam 5mg/5ml vial ONE (09:11)
[2018-01-05] MEDS ORDERED: fentaNYL /PF 50mcg/ml 5ml ampule ONE ×3 (09:30→10:37)
[2018-01-05] MEDS ORDERED: rocuronium 10mg/ml inj IV ONE (10:11)
[2018-01-05] MEDS ORDERED: propofol inj 20 ML IV ONE (10:11)
[2018-01-05] MEDS ORDERED: LIDOcaine 2% (20mg/ml) 5ml vial ONE (10:11)
[2018-01-05] MEDS ORDERED: pancuronium br 1mg/ml inj IV ONE (10:11)
[2018-01-05] MEDS ORDERED: dexamethasone sod phosphate 4mg/ml inj. ONE (10:13)
[2018-01-05] MEDS ORDERED: clindamycin phosphate 150mg/ml inj. ONE (10:21)
[2018-01-05] MEDS ORDERED: gentamicin 40 MG/1 ML inj ONE (10:21)
[2018-01-05] MEDS ORDERED: dexmedetomidine 200mcg/2ml inj. IV ONE (10:39)
[2018-01-05] MEDS ORDERED: albumin (Human) 5% 250ml 250 ML IV ONE (10:54)
[2018-01-05] MEDS ORDERED: ceFAZolin 1000mg inj ONE (13:12)
[2018-01-05] MEDS ORDERED: heparin 1,000unit/ml 10ml vial 10 ML ONE (14:42)
[2018-01-05] MEDS ORDERED: fentaNYL/PF 50MCG/1 ML 2ML syringe ONE (16:56)
[2018-01-05] MEDS ORDERED: propofol 1000mg/100ml bottle 100 ML IV ONE ×2 (17:31→19:46)
[2018-01-05] MEDS ORDERED: Potassium Cl inj 20 MEQ in ringers solution, lacted 1,000 ML IV SCH (17:45)
[2018-01-05] MEDS ORDERED: FENTANYL-0.9 % NACL/PF 100 ML IV PRN (17:45)
[2018-01-05] MEDS: FENTANYL-0.9 % NACL/PF 100 ML IV PRN (18:16)
[2018-01-05 19:05] LABS: ABG BASE EXCESS -7.5 mmol/L (-2.0-3.0); ABG HCO3 19.5 mmol/L (22.0-26.0); ABG OXYGEN SATURATION 96.7 % (95-98); ABG PCO2 (T) 44.6 mmHg (32.0-45.0); ABG PH (T) 7.257 (7.350-7.450); ABG PO2 (T) 94.9 mmHg (83-108); FMetHb 0.2 % (0.3-1.12); FO2Hb 95.5 % (94-100); MINUTE VOLUME 9 L/min; PATIENT TEMPERATURE 36.5; PEEP 5 cm H2O; RESPIRATORY RATE 12 b/min; RESPIRATORY RATE (OBSERVED) 12 b/min; TIDAL VOLUME 700 mL; TOTAL HEMOGLOBIN 12.9 G/dl (12.0-16.0)
[2018-01-05 19:12] LABS: BASOPHILS % (AUTO) 0 % (0-1); EOSINOPHILS # (AUTO) 0.1 X10'3 (0-0.9); EOSINOPHILS % (AUTO) 0.6 % (0-6); HEMATOCRIT 35.4 % (35.0-45.0); HEMOGLOBIN 11.6 g/dl (12.0-16.0); LYMPHOCYTES # (AUTO) 0.8 X10'3 (1.1-4.8); LYMPHOCYTES % (AUTO) 5.6 % (21-51); MEAN CORPUSCULAR HEMOGLOBIN 28.7 PG (27.0-31.0); MEAN CORPUSCULAR HGB CONC 32.6 % (33.0-36.5); MEAN CORPUSCULAR VOLUME 87.9 FL (78-98); MEAN PLATELET VOLUME 9.6 FL (7.4-10.4); MONOCYTES # (AUTO) 0.3 X10'3 (0-0.9); MONOCYTES % (AUTO) 2.3 % (2-12); NEUTROPHILS # (AUTO) 13.6 X10'3 (1.8-7.7); NEUTROPHILS % (AUTO) 91.5 % (42-75); PLATELET COUNT 200 X10'3 (140-440); RED BLOOD COUNT 4.03 X10'6 (4.20-5.60); WHITE BLOOD COUNT 14.9 X10'3 (4.5-11.0)
[2018-01-05 19:30] LABS: ALANINE AMINOTRANSFERASE 21 U/L (12-78); ALBUMIN 2.6 G/DL (3.4-5.0); ALBUMIN/GLOBULIN RATIO 0.8 (1.1-1.5); ALKALINE PHOSPHATASE 61 IU/L (46-116); ANION GAP 10 (8-16); ASPARTATE AMINO TRANSFERASE 27 U/L (10-37); BILIRUBIN,TOTAL 0.4 MG/DL (0.1-1.0); BLOOD UREA NITROGEN 13 MG/DL (7-18); BUN/CREATININE RATIO 14.4 (6.6-38.0); CALCIUM 6.7 MG/DL (8.5-10.1); CHLORIDE 111 MMOL/L (99-107); GLUCOSE 190 MG/DL (70-104); MAGNESIUM 1.4 MG/DL (1.5-2.4); POTASSIUM 4.3 MMOL/L (3.5-5.1); SODIUM 143 MMOL/L (135-145); TOTAL CARBON DIOXIDE 22.4 MMOL/L (24-32); TOTAL PROTEIN 5.9 G/DL (6.4-8.2); eGFR 64 ML/MIN
[2018-01-05] MEDS: propofol 1000mg/100ml bottle 100 ML IV PRN ×2 (20:19→22:42)
[2018-01-05] MEDS: potassium CL 20mEq in D5-1/2NS 1,000 ML IV SCH (20:20)
[2018-01-05] MEDS: magnesium 1gm/100ml D5W IVPB 100 ML IV SCH (22:43)
[2018-01-06] VITALS (24 sets, daily range): BP systolic 16–162; BP diastolic 60–80
[2018-01-06] MEDS ORDERED: ceFOXitin 1 GM ADDVANTAGE BAG 1,000 GM in normal saline 100ml IV soln 100 ML IV SCH ×2
[2018-01-06] MEDS: magnesium 1gm/100ml D5W IVPB 100 ML IV SCH (00:04)
[2018-01-06] MEDS: ceFOXitin 1 GM ADDVANTAGE BAG 50 ML IV SCH ×2 (00:05→11:48)
[2018-01-06] MEDS: FENTANYL-0.9 % NACL/PF 100 ML IV PRN ×2 (03:09→16:23)
[2018-01-06] MEDS: propofol 1000mg/100ml bottle 100 ML IV PRN ×5 (03:10→22:36)
[2018-01-06] MEDS: potassium CL 20mEq in D5-1/2NS 1,000 ML IV SCH ×4 (03:10→19:58)
[2018-01-06 03:55] LABS: ABG BASE EXCESS -4.3 mmol/L (-2.0-3.0); ABG HCO3 21.6 mmol/L (22.0-26.0); ABG OXYGEN SATURATION 98.1 % (95-98); ABG PCO2 (T) 42.7 mmHg (32.0-45.0); ABG PH (T) 7.322 (7.350-7.450); ABG PO2 (T) 123.5 mmHg (83-108); FCOHb 0.2 % (0.5-1.5); FMetHb 0.1 % (0.3-1.12); FO2Hb 97.8 % (94-100); MINUTE VOLUME 9 L/min; PATIENT TEMPERATURE 37.1; PEEP 5 cm H2O; RESPIRATORY RATE 12 b/min; RESPIRATORY RATE (OBSERVED) 12 b/min; TIDAL VOLUME 700 mL; TOTAL HEMOGLOBIN 12.3 G/dl (12.0-16.0)
[2018-01-06 03:58] LABS: BASOPHILS % (AUTO) 0.2 % (0-1); EOSINOPHILS # (AUTO) 0.1 X10'3 (0-0.9); EOSINOPHILS % (AUTO) 0.5 % (0-6); HEMATOCRIT 35.1 % (35.0-45.0); HEMOGLOBIN 11.7 g/dl (12.0-16.0); LYMPHOCYTES # (AUTO) 1.7 X10'3 (1.1-4.8); LYMPHOCYTES % (AUTO) 12.8 % (21-51); MEAN CORPUSCULAR HEMOGLOBIN 29.2 PG (27.0-31.0); MEAN CORPUSCULAR HGB CONC 33.3 % (33.0-36.5); MEAN CORPUSCULAR VOLUME 87.6 FL (78-98); MEAN PLATELET VOLUME 8.9 FL (7.4-10.4); MONOCYTES # (AUTO) 0.9 X10'3 (0-0.9); MONOCYTES % (AUTO) 6.7 % (2-12); NEUTROPHILS # (AUTO) 10.5 X10'3 (1.8-7.7); NEUTROPHILS % (AUTO) 79.8 % (42-75); PLATELET COUNT 250 X10'3 (140-440); RED BLOOD COUNT 4.01 X10'6 (4.20-5.60); RED CELL DISTRIBUTION WIDTH 16.1 % (11.5-14.5); WHITE BLOOD COUNT 13.1 X10'3 (4.5-11.0)
[2018-01-06 04:14] LABS: ALBUMIN 2.5 G/DL (3.4-5.0); ANION GAP 6 (8-16); BLOOD UREA NITROGEN 12 MG/DL (7-18); CALCIUM 7.3 MG/DL (8.5-10.1); CHLORIDE 109 MMOL/L (99-107); CREATININE 0.86 MG/DL (0.40-0.90); GLUCOSE 171 MG/DL (70-104); POTASSIUM 4.6 MMOL/L (3.5-5.1); SODIUM 139 MMOL/L (135-145); TOTAL CARBON DIOXIDE 23.6 MMOL/L (24-32); TRIGLYCERIDES 161 MG/DL (20-135); eGFR 68 ML/MIN
[2018-01-06] MEDS: ondansetron/PF 4mg/2ml inj IV PRN (09:09)
[2018-01-06] MEDS ORDERED: furosemide 40mg/4ml inj IV ONE (10:10)
[2018-01-06] MEDS ORDERED: dexamethasone sod phosphate 10mg/ml inj IV STA (15:16)
[2018-01-06] MEDS ORDERED: albuterol 2.5 MG/3 ML nebule NEB PRN (15:20)
[2018-01-06] MEDS: busPIRone 15mg tablet PO SCH (19:55)
[2018-01-07] VITALS (24 sets, daily range): BP systolic 89–154; BP diastolic 53–88
[2018-01-07] MEDS: propofol 1000mg/100ml bottle 100 ML IV PRN ×10 (01:57→23:41)
[2018-01-07] MEDS: FENTANYL-0.9 % NACL/PF 100 ML IV PRN ×3 (03:24→23:41)
[2018-01-07 03:46] LABS: ABG HCO3 24.7 mmol/L (22.0-26.0); ABG OXYGEN SATURATION 94.9 % (95-98); ABG PCO2 (T) 45.6 mmHg (32.0-45.0); ABG PH (T) 7.352 (7.350-7.450); ABG PO2 (T) 77.1 mmHg (83-108); FCOHb 0.3 % (0.5-1.5); FMetHb 0.1 % (0.3-1.12); FO2Hb 94.5 % (94-100); PATIENT TEMPERATURE 37.1; PEEP 5 cm H2O; RESPIRATORY RATE 12 b/min; TIDAL VOLUME 500 mL; TOTAL HEMOGLOBIN 10.7 G/dl (12.0-16.0)
[2018-01-07 04:15] LABS: BASOPHILS # (AUTO) 0.1 X10'3 (0-0.2); BASOPHILS % (AUTO) 0.4 % (0-1); EOSINOPHILS % (AUTO) 0 % (0-6); HEMATOCRIT 28.7 % (35.0-45.0); HEMOGLOBIN 9.5 g/dl (12.0-16.0); LYMPHOCYTES # (AUTO) 1.1 X10'3 (1.1-4.8); LYMPHOCYTES % (AUTO) 9.4 % (21-51); MEAN CORPUSCULAR HEMOGLOBIN 29.2 PG (27.0-31.0); MEAN CORPUSCULAR HGB CONC 33.2 % (33.0-36.5); MEAN CORPUSCULAR VOLUME 87.8 FL (78-98); MEAN PLATELET VOLUME 8.9 FL (7.4-10.4); MONOCYTES # (AUTO) 0.8 X10'3 (0-0.9); MONOCYTES % (AUTO) 6.6 % (2-12); NEUTROPHILS # (AUTO) 9.7 X10'3 (1.8-7.7); NEUTROPHILS % (AUTO) 83.6 % (42-75); PLATELET COUNT 186 X10'3 (140-440); RED BLOOD COUNT 3.27 X10'6 (4.20-5.60); RED CELL DISTRIBUTION WIDTH 16.7 % (11.5-14.5); WHITE BLOOD COUNT 11.6 X10'3 (4.5-11.0)
[2018-01-07 04:27] LABS: ANION GAP 4 (8-16); BLOOD UREA NITROGEN 8 MG/DL (7-18); BUN/CREATININE RATIO 10.4 (6.6-38.0); CALCIUM 7.4 MG/DL (8.5-10.1); CHLORIDE 109 MMOL/L (99-107); CREATININE 0.77 MG/DL (0.40-0.90); GLUCOSE 157 MG/DL (70-104); POTASSIUM 4.4 MMOL/L (3.5-5.1); SODIUM 139 MMOL/L (135-145); TOTAL CARBON DIOXIDE 25.8 MMOL/L (24-32); eGFR 77 ML/MIN
[2018-01-07] MEDS: potassium CL 20mEq in D5-1/2NS 1,000 ML IV SCH ×2 (04:33→17:57)
[2018-01-07] MEDS: busPIRone 15mg tablet PO SCH ×2 (08:00→19:57)
[2018-01-07] MEDS: sertraline 50mg tablet PO SCH (08:00)
[2018-01-07] MEDS: ondansetron/PF 4mg/2ml inj IV PRN (08:56)
[2018-01-07] MEDS ORDERED: pantoprazole 40MG/NS 100ML BAG 100 ML IV ONE (12:00)
[2018-01-07] MEDS ORDERED: furosemide 40mg/4ml inj IV ONE (12:00)
[2018-01-07] MEDS: enoxaparin 40mg/0.4ml syringe SUBCUT SCH (12:13)
[2018-01-07] MEDS: dexmedetomidin/NS 400mcg/100ml 100 ML IV SCH ×2 (12:49→21:27)
[2018-01-07] MEDS: metoclopramide 5 mg/ml inj IV SCH ×2 (13:54→19:57)
[2018-01-07] MEDS: dexamethasone sod phosphate 10mg/ml inj IV SCH ×2 (13:56→19:57)
[2018-01-07] MEDS: furosemide 40mg/4ml inj IV SCH ×2 (16:16→23:41)
[2018-01-07] MEDS: pantoprazole 40MG/NS 100ML BAG 100 ML IV SCH ×2 (16:17→21:26)
[2018-01-08] VITALS (24 sets, daily range): BP systolic 97–158; BP diastolic 46–91
[2018-01-08] MEDS: FENTANYL-0.9 % NACL/PF 100 ML IV PRN ×2 (00:38→22:13)
[2018-01-08] MEDS ORDERED: amiodarone 150mg/dext, iso-os 100 ML IV ONE ×2 (02:10→07:45)
[2018-01-08] MEDS: metoclopramide 5 mg/ml inj IV SCH ×4 (02:14→21:11)
[2018-01-08] MEDS: dexamethasone sod phosphate 10mg/ml inj IV SCH ×4 (02:14→21:09)
[2018-01-08] MEDS: pantoprazole 40MG/NS 100ML BAG 100 ML IV SCH ×5 (02:14→18:51)
[2018-01-08] MEDS: propofol 1000mg/100ml bottle 100 ML IV PRN ×3 (02:15→08:33)
[2018-01-08] MEDS: potassium CL 20mEq in D5-1/2NS 1,000 ML IV SCH ×3 (02:18→18:54)
[2018-01-08 03:39] LABS: BASOPHILS % (AUTO) 0.1 % (0-1); EOSINOPHILS # (AUTO) 0.1 X10'3 (0-0.9); EOSINOPHILS % (AUTO) 0.8 % (0-6); HEMATOCRIT 25.7 % (35.0-45.0); HEMOGLOBIN 8.6 g/dl (12.0-16.0); LYMPHOCYTES # (AUTO) 0.8 X10'3 (1.1-4.8); LYMPHOCYTES % (AUTO) 7.5 % (21-51); MEAN CORPUSCULAR HEMOGLOBIN 29.4 PG (27.0-31.0); MEAN CORPUSCULAR HGB CONC 33.6 % (33.0-36.5); MEAN CORPUSCULAR VOLUME 87.3 FL (78-98); MEAN PLATELET VOLUME 10.8 FL (7.4-10.4); MONOCYTES # (AUTO) 0.4 X10'3 (0-0.9); MONOCYTES % (AUTO) 3.3 % (2-12); NEUTROPHILS # (AUTO) 9.9 X10'3 (1.8-7.7); NEUTROPHILS % (AUTO) 88.3 % (42-75); PLATELET COUNT 137 X10'3 (140-440); RED BLOOD COUNT 2.95 X10'6 (4.20-5.60); RED CELL DISTRIBUTION WIDTH 16.5 % (11.5-14.5); WHITE BLOOD COUNT 11.3 X10'3 (4.5-11.0)
[2018-01-08 03:50] LABS: ANION GAP 3 (8-16); BLOOD UREA NITROGEN 10 MG/DL (7-18); BUN/CREATININE RATIO 11.2 (6.6-38.0); CALCIUM 7.6 MG/DL (8.5-10.1); CHLORIDE 107 MMOL/L (99-107); CREATININE 0.89 MG/DL (0.40-0.90); GLUCOSE 193 MG/DL (70-104); POTASSIUM 4.2 MMOL/L (3.5-5.1); SODIUM 141 MMOL/L (135-145); TOTAL CARBON DIOXIDE 31.1 MMOL/L (24-32); eGFR 65 ML/MIN
[2018-01-08 05:31] LABS: ABG BASE EXCESS 2.7 mmol/L (-2.0-3.0); ABG HCO3 28.5 mmol/L (22.0-26.0); ABG OXYGEN SATURATION 92.8 % (95-98); ABG PCO2 (T) 50.2 mmHg (32.0-45.0); ABG PH (T) 7.372 (7.350-7.450); ABG PO2 (T) 68.4 mmHg (83-108); FCOHb 0.3 % (0.5-1.5); FMetHb 0.3 % (0.3-1.12); FO2Hb 92.2 % (94-100); PEEP 5 cm H2O; RESPIRATORY RATE 12 b/min; TIDAL VOLUME 500 mL; TOTAL HEMOGLOBIN 9.6 G/dl (12.0-16.0)
[2018-01-08] MEDS ORDERED: amiodarone/D5 360MG/200ML BAG 200 ML IV SCH (07:45)
[2018-01-08] MEDS: enoxaparin 40mg/0.4ml syringe SUBCUT SCH (08:33)
[2018-01-08] MEDS: furosemide 40mg/4ml inj IV SCH ×2 (08:33→16:39)
[2018-01-08] MEDS: amiodarone/D5 360MG/200ML BAG 200 ML IV SCH ×3 (08:35→19:58)
[2018-01-08] MEDS: busPIRone 15mg tablet PO SCH ×2 (08:36→21:09)
[2018-01-08] MEDS: sertraline 50mg tablet PO SCH (08:36)
[2018-01-08 12:48] LABS: MAGNESIUM 1.9 MG/DL (1.5-2.4)
[2018-01-08] MEDS: dexmedetomidin/NS 400mcg/100ml 100 ML IV SCH (12:53)
[2018-01-08] MEDS ORDERED: magnesium 4gm in 100ml NS 100 ML IV ONE (12:55)
[2018-01-08] MEDS: ceFOXitin 2 GM ADDvantage bag 100 ML IV SCH ×2 (13:50→21:09)
[2018-01-09] VITALS (19 sets, daily range): BP systolic 112–176; BP diastolic 68–99
[2018-01-09] MEDS: furosemide 40mg/4ml inj IV SCH ×2 (00:28→07:58)
[2018-01-09] MEDS: pantoprazole 40MG/NS 100ML BAG 100 ML IV SCH ×3 (00:29→11:26)
[2018-01-09] MEDS: potassium CL 20mEq in D5-1/2NS 1,000 ML IV SCH ×4 (01:45→22:58)
[2018-01-09] MEDS: amiodarone/D5 360MG/200ML BAG 200 ML IV SCH ×2 (01:52→08:03)
[2018-01-09] MEDS: ceFOXitin 2 GM ADDvantage bag 100 ML IV SCH (01:55)
[2018-01-09] MEDS: dexamethasone sod phosphate 10mg/ml inj IV SCH ×3 (01:55→14:00)
[2018-01-09] MEDS: metoclopramide 5 mg/ml inj IV SCH ×4 (01:55→20:26)
[2018-01-09 03:36] LABS: BASOPHILS % (AUTO) 0.1 % (0-1); EOSINOPHILS % (AUTO) 0 % (0-6); HEMATOCRIT 25.8 % (35.0-45.0); HEMOGLOBIN 8.5 g/dl (12.0-16.0); LYMPHOCYTES # (AUTO) 1.1 X10'3 (1.1-4.8); LYMPHOCYTES % (AUTO) 8.1 % (21-51); MEAN CORPUSCULAR HEMOGLOBIN 28.9 PG (27.0-31.0); MEAN CORPUSCULAR VOLUME 87.8 FL (78-98); MEAN PLATELET VOLUME 9.5 FL (7.4-10.4); MONOCYTES # (AUTO) 0.4 X10'3 (0-0.9); MONOCYTES % (AUTO) 3.3 % (2-12); NEUTROPHILS # (AUTO) 11.7 X10'3 (1.8-7.7); NEUTROPHILS % (AUTO) 88.5 % (42-75); PLATELET COUNT 220 X10'3 (140-440); RED BLOOD COUNT 2.94 X10'6 (4.20-5.60); RED CELL DISTRIBUTION WIDTH 16.4 % (11.5-14.5); WHITE BLOOD COUNT 13.2 X10'3 (4.5-11.0)
[2018-01-09 03:47] LABS: ALBUMIN 2.2 G/DL (3.4-5.0); ANION GAP 7 (8-16); BLOOD UREA NITROGEN 14 MG/DL (7-18); BUN/CREATININE RATIO 16.9 (6.6-38.0); CALCIUM 8.4 MG/DL (8.5-10.1); CHLORIDE 105 MMOL/L (99-107); CREATININE 0.83 MG/DL (0.40-0.90); GLUCOSE 187 MG/DL (70-104); POTASSIUM 3.6 MMOL/L (3.5-5.1); SODIUM 144 MMOL/L (135-145); TOTAL CARBON DIOXIDE 32.4 MMOL/L (24-32); eGFR 70 ML/MIN
[2018-01-09] MEDS: busPIRone 15mg tablet PO SCH ×2 (07:58→20:27)
[2018-01-09] MEDS: sertraline 50mg tablet PO SCH (07:58)
[2018-01-09] MEDS: enoxaparin 40mg/0.4ml syringe SUBCUT SCH (07:59)
[2018-01-09] MEDS ORDERED: propofol 1000mg/100ml bottle 100 ML IV PRN (09:56)
[2018-01-09] MEDS ORDERED: CADD PCA waste documentation MC SCH (12:30)
[2018-01-09] MEDS: HYDROmorphone/NS 1 mg/ml CADD 50 ML IV SCH ×7 (13:00→23:00)
[2018-01-09] MEDS: furosemide 20 MG/2 ML vial IV SCH ×2 (15:24→23:57)
[2018-01-09] MEDS: amiodarone 200mg tablet PO SCH (20:27)
[2018-01-09] MEDS: dexamethasone 4mg/ml inj IM SCH (20:28)
[2018-01-09] MEDS ORDERED: HYDROmorphone 1 mg/ml syringe IV PRN (21:00)
[2018-01-10] VITALS: BP 104/70
[2018-01-10] MEDS: HYDROmorphone/NS 1 mg/ml CADD 50 ML IV SCH ×12 (01:00→23:00)
[2018-01-10] MEDS: ceFOXitin 2 GM ADDvantage bag 100 ML IV SCH ×3 (01:40→13:41)
[2018-01-10] MEDS: metoclopramide 5 mg/ml inj IV SCH ×4 (01:49→19:41)
[2018-01-10 03:00] VITALS: BP 129/65
[2018-01-10 04:50] LABS: BASOPHILS # (AUTO) 0.1 X10'3 (0-0.2); BASOPHILS % (AUTO) 0.4 % (0-1); EOSINOPHILS % (AUTO) 0.1 % (0-6); HEMOGLOBIN 9.8 g/dl (12.0-16.0); LYMPHOCYTES # (AUTO) 1.6 X10'3 (1.1-4.8); LYMPHOCYTES % (AUTO) 12.8 % (21-51); MEAN CORPUSCULAR HGB CONC 32.9 % (33.0-36.5); MEAN CORPUSCULAR VOLUME 88.2 FL (78-98); MEAN PLATELET VOLUME 8.8 FL (7.4-10.4); MONOCYTES % (AUTO) 7.9 % (2-12); NEUTROPHILS # (AUTO) 10.1 X10'3 (1.8-7.7); NEUTROPHILS % (AUTO) 78.8 % (42-75); PLATELET COUNT 245 X10'3 (140-440); WHITE BLOOD COUNT 12.9 X10'3 (4.5-11.0)
[2018-01-10 05:30] LABS: ALBUMIN 2.3 G/DL (3.4-5.0); ANION GAP 5 (8-16); BLOOD UREA NITROGEN 20 MG/DL (7-18); BUN/CREATININE RATIO 20.8 (6.6-38.0); CALCIUM 8.5 MG/DL (8.5-10.1); CHLORIDE 104 MMOL/L (99-107); CREATININE 0.96 MG/DL (0.40-0.90); GLUCOSE 151 MG/DL (70-104); SODIUM 143 MMOL/L (135-145); TOTAL CARBON DIOXIDE 33.8 MMOL/L (24-32); eGFR 59 ML/MIN
[2018-01-10] MEDS: amiodarone 200mg tablet PO SCH (08:42)
[2018-01-10] MEDS: sertraline 50mg tablet PO SCH (08:43)
[2018-01-10] MEDS: busPIRone 15mg tablet PO SCH ×2 (08:43→19:42)
[2018-01-10] MEDS: pantoprazole 40mg Tablet.DR PO SCH (08:43)
[2018-01-10] MEDS: dexamethasone 4mg/ml inj IM SCH ×2 (08:44→19:57)
[2018-01-10] MEDS: furosemide 20 MG/2 ML vial IV SCH ×2 (08:44→16:19)
[2018-01-10] MEDS: enoxaparin 40mg/0.4ml syringe SUBCUT SCH (08:46)
[2018-01-10] MEDS: potassium CL 20mEq in D5-1/2NS 1,000 ML IV SCH (13:38)
[2018-01-10 19:00] VITALS: BP 149/83
[2018-01-10 23:00] VITALS: BP 149/81
[2018-01-11] VITALS (8 sets, daily range): BP systolic 104–198; BP diastolic 69–92
[2018-01-11] MEDS: HYDROmorphone/NS 1 mg/ml CADD 50 ML IV SCH ×12 (01:00→23:00)
[2018-01-11] MEDS: metoclopramide 5 mg/ml inj IV SCH ×4 (02:36→20:50)
[2018-01-11] MEDS: ondansetron/PF 4mg/2ml inj IV PRN (03:14)
[2018-01-11] MEDS: fluconazole 100mg tablet PO SCH (07:51)
[2018-01-11] MEDS: pantoprazole 40mg Tablet.DR PO SCH (07:51)
[2018-01-11] MEDS: busPIRone 15mg tablet PO SCH ×2 (07:51→20:50)
[2018-01-11] MEDS: sertraline 50mg tablet PO SCH (07:51)
[2018-01-11] MEDS: furosemide 20 MG/2 ML vial IV SCH ×4 (07:52→23:27)
[2018-01-11] MEDS: enoxaparin 40mg/0.4ml syringe SUBCUT SCH (07:52)
[2018-01-11] MEDS: dexamethasone 4mg/ml inj IM SCH (07:53)
[2018-01-11] MEDS: labetalol 100mg tablet PO SCH ×3 (09:23→20:49)
[2018-01-11] MEDS: lamoTRIgine 100mg tablet PO SCH (11:09)
[2018-01-11] MEDS: aripiprazole 5mg tablet PO SCH (14:03)
[2018-01-11] MEDS: amiodarone/D5 360MG/200ML BAG 200 ML IV SCH ×2 (14:05→19:46)
[2018-01-11] MEDS ORDERED: amiodarone 150mg/dext, iso-os 100 ML IV ONE (14:30)
[2018-01-11] MEDS: K and/or MAG REPLACEMENT MC SCH (14:55)
[2018-01-11] MEDS ORDERED: potassium Cl 40MEQ/NS 500ml 500 ML IV PRN ×2 (14:55)
[2018-01-11] MEDS ORDERED: potassium Cl 20 mEq SR tablet PO PRN ×2 (14:55)
[2018-01-11 15:46] LABS: MAGNESIUM 1.9 MG/DL (1.5-2.4); POTASSIUM 3.8 MMOL/L (3.5-5.1)
[2018-01-11] MEDS ORDERED: magnesium 4gm in 100ml NS 100 ML IV ONE (16:55)
[2018-01-11] MEDS: gabapentin 300mg capsule PO SCH ×2 (18:01→23:27)
[2018-01-11] MEDS: magnesium oxide 400mg tablet PO SCH ×2 (18:02→23:27)
[2018-01-11] MEDS: apixaban 5mg tablet PO SCH (20:50)
[2018-01-11] MEDS: doxepin 25mg capsule PO SCH (20:50)
[2018-01-12] VITALS (10 sets, daily range): BP systolic 89–137; BP diastolic 54–102
[2018-01-12] MEDS: HYDROmorphone/NS 1 mg/ml CADD 50 ML IV SCH ×12 (01:00→23:00)
[2018-01-12] MEDS: metoclopramide 5 mg/ml inj IV SCH ×4 (02:05→19:17)
[2018-01-12] MEDS: amiodarone/D5 360MG/200ML BAG 200 ML IV SCH ×4 (02:08→20:58)
[2018-01-12 07:19] LABS: MAGNESIUM 2.1 MG/DL (1.5-2.4); POTASSIUM 3.1 MMOL/L (3.5-5.1)
[2018-01-12] MEDS ORDERED: potassium Cl oral solution 20 MEQ/15 ML PO PRN (07:53)
[2018-01-12] MEDS ORDERED: dexamethasone 4mg/ml inj IM SCH (08:00)
[2018-01-12] MEDS ORDERED: furosemide 20MG tablet PO SCH (08:00)
[2018-01-12] MEDS: K and/or MAG REPLACEMENT MC SCH (08:00)
[2018-01-12] MEDS: atorvastatin 10mg tablet PO SCH (08:56)
[2018-01-12] MEDS: aripiprazole 5mg tablet PO SCH (08:56)
[2018-01-12] MEDS: lamoTRIgine 100mg tablet PO SCH (08:56)
[2018-01-12] MEDS: apixaban 5mg tablet PO SCH ×2 (08:57→19:17)
[2018-01-12] MEDS: clopidogrel 75mg tablet PO SCH (08:57)
[2018-01-12] MEDS: gabapentin 300mg capsule PO SCH ×3 (08:57→23:25)
[2018-01-12] MEDS: potassium chloride 8mEq ER tablet PO SCH (08:57)
[2018-01-12] MEDS: magnesium oxide 400mg tablet PO SCH ×3 (08:57→23:25)
[2018-01-12] MEDS: pantoprazole 40mg Tablet.DR PO SCH (08:57)
[2018-01-12] MEDS: potassium Cl oral solution 20 MEQ/15 ML PO PRN ×3 (08:58→23:24)
[2018-01-12] MEDS: fluconazole 100mg tablet PO SCH (08:58)
[2018-01-12] MEDS: sertraline 50mg tablet PO SCH (08:58)
[2018-01-12] MEDS: busPIRone 15mg tablet PO SCH ×2 (08:58→19:17)
[2018-01-12] MEDS: dexamethasone 4mg/ml inj IM SCH (14:16)
[2018-01-12] MEDS: doxepin 25mg capsule PO SCH (21:00)
[2018-01-13] VITALS (10 sets, daily range): BP systolic 101–128; BP diastolic 52–81
[2018-01-13] MEDS: HYDROmorphone/NS 1 mg/ml CADD 50 ML IV SCH ×12 (01:00→23:00)
[2018-01-13] MEDS: metoclopramide 5 mg/ml inj IV SCH ×4 (01:28→19:57)
[2018-01-13] MEDS: amiodarone/D5 360MG/200ML BAG 200 ML IV SCH ×2 (02:25→09:18)
[2018-01-13] MEDS ORDERED: diltiazem 30mg tablet PO SCH (08:00)
[2018-01-13] MEDS: K and/or MAG REPLACEMENT MC SCH (08:00)
[2018-01-13] MEDS: dexamethasone 4mg/ml inj IM SCH (08:00)
[2018-01-13] MEDS: lamoTRIgine 100mg tablet PO SCH (09:09)
[2018-01-13] MEDS: magnesium oxide 400mg tablet PO SCH ×3 (09:09→23:06)
[2018-01-13] MEDS: atorvastatin 10mg tablet PO SCH (09:09)
[2018-01-13] MEDS: fluconazole 100mg tablet PO SCH (09:10)
[2018-01-13] MEDS: apixaban 5mg tablet PO SCH ×2 (09:11→19:56)
[2018-01-13] MEDS: potassium chloride 8mEq ER tablet PO SCH (09:11)
[2018-01-13] MEDS: busPIRone 15mg tablet PO SCH ×2 (09:11→19:56)
[2018-01-13] MEDS: gabapentin 300mg capsule PO SCH ×3 (09:12→23:06)
[2018-01-13] MEDS: pantoprazole 40mg Tablet.DR PO SCH (09:12)
[2018-01-13] MEDS: carvedilol 6.25mg tablet PO SCH ×2 (09:12→19:58)
[2018-01-13] MEDS: clopidogrel 75mg tablet PO SCH (09:13)
[2018-01-13] MEDS: sertraline 50mg tablet PO SCH (09:13)
[2018-01-13] MEDS: aripiprazole 5mg tablet PO SCH (09:28)
[2018-01-13 10:03] LABS: MAGNESIUM 1.9 MG/DL (1.5-2.4)
[2018-01-13] MEDS ORDERED: amiodarone/D5 360MG/200ML BAG 200 ML IV SCH (10:15)
[2018-01-13] MEDS: amiodarone 200mg tablet PO SCH (19:56)
[2018-01-13] MEDS ORDERED: amiodarone 200mg tablet PO SCH (20:00)
[2018-01-13] MEDS: doxepin 25mg capsule PO SCH (21:18)
[2018-01-14] MEDS: HYDROmorphone/NS 1 mg/ml CADD 50 ML IV SCH ×6 (01:00→11:00)
[2018-01-14 02:00] VITALS: BP 124/55
[2018-01-14] MEDS: metoclopramide 5 mg/ml inj IV SCH ×4 (02:14→21:01)
[2018-01-14 07:00] VITALS: BP 109/51
[2018-01-14 07:35] LABS: ALBUMIN 2.5 G/DL (3.4-5.0); ANION GAP 4 (8-16); BLOOD UREA NITROGEN 15 MG/DL (7-18); CALCIUM 8.4 MG/DL (8.5-10.1); CHLORIDE 105 MMOL/L (99-107); GLUCOSE 107 MG/DL (70-104); POTASSIUM 3.9 MMOL/L (3.5-5.1); SODIUM 141 MMOL/L (135-145); TOTAL CARBON DIOXIDE 31.6 MMOL/L (24-32); eGFR 57 ML/MIN
[2018-01-14] MEDS: fluconazole 100mg tablet PO SCH (07:40)
[2018-01-14] MEDS: apixaban 5mg tablet PO SCH ×2 (07:40→21:02)
[2018-01-14] MEDS: lamoTRIgine 100mg tablet PO SCH (07:40)
[2018-01-14] MEDS: gabapentin 300mg capsule PO SCH ×2 (07:40→16:42)
[2018-01-14] MEDS: clopidogrel 75mg tablet PO SCH (07:41)
[2018-01-14] MEDS: carvedilol 6.25mg tablet PO SCH ×2 (07:41→20:00)
[2018-01-14] MEDS: amiodarone 200mg tablet PO SCH ×2 (07:42→21:02)
[2018-01-14] MEDS: busPIRone 15mg tablet PO SCH ×2 (07:42→21:02)
[2018-01-14] MEDS: pantoprazole 40mg Tablet.DR PO SCH (07:42)
[2018-01-14] MEDS: aripiprazole 5mg tablet PO SCH (07:42)
[2018-01-14] MEDS: atorvastatin 10mg tablet PO SCH (07:42)
[2018-01-14] MEDS: sertraline 50mg tablet PO SCH (07:42)
[2018-01-14] MEDS: potassium chloride 8mEq ER tablet PO SCH (07:43)
[2018-01-14] MEDS: magnesium oxide 400mg tablet PO SCH ×2 (07:44→16:42)
[2018-01-14] MEDS: K and/or MAG REPLACEMENT MC SCH (08:00)
[2018-01-14 11:00] VITALS: BP 106/61
[2018-01-14] MEDS: HYDROcodone/acetaminophen 10/325mg tab PO PRN (14:51)
[2018-01-14 15:00] VITALS: BP 113/62
[2018-01-14] MEDS ORDERED: CADD PCA waste documentation MC SCH (18:45)
[2018-01-14 19:00] VITALS: BP 149/74
[2018-01-14] MEDS: doxepin 25mg capsule PO SCH (21:01)
[2018-01-14 23:00] VITALS: BP 114/63
[2018-01-15] MEDS: gabapentin 300mg capsule PO SCH ×4 (01:35→21:52)
[2018-01-15] MEDS: magnesium oxide 400mg tablet PO SCH ×3 (01:35→16:26)
[2018-01-15] MEDS: metoclopramide 5 mg/ml inj IV SCH ×4 (01:36→21:52)
[2018-01-15 03:00] VITALS: BP 127/56
[2018-01-15] MEDS: ondansetron/PF 4mg/2ml inj IV PRN (03:50)
[2018-01-15 06:00] VITALS: BP 123/55
[2018-01-15] MEDS: lamoTRIgine 100mg tablet PO SCH (07:21)
[2018-01-15] MEDS: clopidogrel 75mg tablet PO SCH (07:21)
[2018-01-15] MEDS: sertraline 50mg tablet PO SCH (07:22)
[2018-01-15] MEDS: apixaban 5mg tablet PO SCH ×2 (07:22→21:52)
[2018-01-15] MEDS: aripiprazole 5mg tablet PO SCH (07:22)
[2018-01-15] MEDS: atorvastatin 10mg tablet PO SCH (07:22)
[2018-01-15] MEDS: pantoprazole 40mg Tablet.DR PO SCH (07:23)
[2018-01-15] MEDS: amiodarone 200mg tablet PO SCH ×2 (07:23→21:52)
[2018-01-15] MEDS: potassium chloride 8mEq ER tablet PO SCH (07:23)
[2018-01-15] MEDS: busPIRone 15mg tablet PO SCH ×2 (07:23→21:52)
[2018-01-15] MEDS: carvedilol 6.25mg tablet PO SCH ×2 (07:23→21:52)
[2018-01-15] MEDS: fluconazole 100mg tablet PO SCH (07:41)
[2018-01-15] MEDS: K and/or MAG REPLACEMENT MC SCH (08:00)
[2018-01-15 11:00] VITALS: BP 115/54
[2018-01-15 15:00] VITALS: BP 117/62
[2018-01-15] MEDS: HYDROcodone/acetaminophen 10/325mg tab PO PRN (17:44)
[2018-01-15] MEDS: proCHLORperazine 10 MG/2 ml inj IV PRN (17:44)
[2018-01-15] MEDS: doxepin 25mg capsule PO SCH (21:52)
[2018-01-16] MEDS: magnesium oxide 400mg tablet PO SCH ×3 (01:01→16:58)
[2018-01-16] MEDS: metoclopramide 5 mg/ml inj IV SCH ×4 (01:02→20:29)
[2018-01-16] MEDS: proCHLORperazine 10 MG/2 ml inj IV PRN ×2 (04:05→11:59)
[2018-01-16] MEDS: HYDROcodone/acetaminophen 10/325mg tab PO PRN ×2 (04:05→08:20)
[2018-01-16 07:00] VITALS: BP 126/51
[2018-01-16] MEDS: pantoprazole 40mg Tablet.DR PO SCH (07:12)
[2018-01-16] MEDS: levoTHYROXINE 100mcg tablet PO SCH (07:12)
[2018-01-16] MEDS: K and/or MAG REPLACEMENT MC SCH (08:00)
[2018-01-16] MEDS: aripiprazole 5mg tablet PO SCH (08:15)
[2018-01-16] MEDS: gabapentin 300mg capsule PO SCH ×2 (08:15→16:58)
[2018-01-16] MEDS: fluconazole 100mg tablet PO SCH (08:15)
[2018-01-16] MEDS: lamoTRIgine 100mg tablet PO SCH (08:16)
[2018-01-16] MEDS: clopidogrel 75mg tablet PO SCH (08:16)
[2018-01-16] MEDS: apixaban 5mg tablet PO SCH ×2 (08:16→20:39)
[2018-01-16] MEDS: carvedilol 6.25mg tablet PO SCH ×2 (08:16→20:39)
[2018-01-16] MEDS: sertraline 50mg tablet PO SCH (08:16)
[2018-01-16] MEDS: potassium chloride 8mEq ER tablet PO SCH (08:17)
[2018-01-16] MEDS: amiodarone 200mg tablet PO SCH ×2 (08:17→20:39)
[2018-01-16] MEDS: atorvastatin 10mg tablet PO SCH (08:17)
[2018-01-16] MEDS: busPIRone 15mg tablet PO SCH ×2 (08:17→20:39)
[2018-01-16 09:48] LABS: BASOPHILS # (AUTO) 0.1 X10'3 (0-0.2); BASOPHILS % (AUTO) 0.7 % (0-1); EOSINOPHILS # (AUTO) 0.4 X10'3 (0-0.9); EOSINOPHILS % (AUTO) 3.1 % (0-6); HEMATOCRIT 29.9 % (35.0-45.0); HEMOGLOBIN 9.6 g/dl (12.0-16.0); LYMPHOCYTES # (AUTO) 1.7 X10'3 (1.1-4.8); LYMPHOCYTES % (AUTO) 13.6 % (21-51); MEAN CORPUSCULAR HEMOGLOBIN 28.6 PG (27.0-31.0); MEAN CORPUSCULAR HGB CONC 32.2 % (33.0-36.5); MEAN CORPUSCULAR VOLUME 88.7 FL (78-98); MEAN PLATELET VOLUME 8.6 FL (7.4-10.4); MONOCYTES # (AUTO) 0.5 X10'3 (0-0.9); MONOCYTES % (AUTO) 4.2 % (2-12); NEUTROPHILS # (AUTO) 9.8 X10'3 (1.8-7.7); NEUTROPHILS % (AUTO) 78.4 % (42-75); PLATELET COUNT 300 X10'3 (140-440); RED BLOOD COUNT 3.37 X10'6 (4.20-5.60); WHITE BLOOD COUNT 12.5 X10'3 (4.5-11.0)
[2018-01-16 10:07] LABS: ALANINE AMINOTRANSFERASE 23 U/L (12-78); ALBUMIN 2.4 G/DL (3.4-5.0); ALBUMIN/GLOBULIN RATIO 0.7 (1.1-1.5); ALKALINE PHOSPHATASE 94 IU/L (46-116); ANION GAP 5 (8-16); ASPARTATE AMINO TRANSFERASE 21 U/L (10-37); BILIRUBIN,TOTAL 0.5 MG/DL (0.1-1.0); BLOOD UREA NITROGEN 11 MG/DL (7-18); BUN/CREATININE RATIO 10.1 (6.6-38.0); CALCIUM 8.3 MG/DL (8.5-10.1); CHLORIDE 105 MMOL/L (99-107); CREATININE 1.09 MG/DL (0.40-0.90); GLUCOSE 133 MG/DL (70-104); POTASSIUM 4.2 MMOL/L (3.5-5.1); SODIUM 139 MMOL/L (135-145); TOTAL CARBON DIOXIDE 29.5 MMOL/L (24-32); eGFR 51 ML/MIN
[2018-01-16 11:00] VITALS: BP 111/53
[2018-01-16 15:00] VITALS: BP 110/62
[2018-01-16 19:00] VITALS: BP 105/63
[2018-01-16] MEDS: doxepin 25mg capsule PO SCH (20:38)
[2018-01-16 23:00] VITALS: BP 110/62
[2018-01-17] MEDS: magnesium oxide 400mg tablet PO SCH ×4 (00:43→23:21)
[2018-01-17] MEDS: gabapentin 300mg capsule PO SCH ×4 (00:43→23:21)
[2018-01-17] MEDS: proCHLORperazine 10 MG/2 ml inj IV PRN ×4 (00:44→21:28)
[2018-01-17 03:00] VITALS: BP 139/58
[2018-01-17] MEDS: metoclopramide 5 mg/ml inj IV SCH ×4 (03:51→19:27)
[2018-01-17 04:57] LABS: BASOPHILS % (AUTO) 0.3 % (0-1); EOSINOPHILS # (AUTO) 0.4 X10'3 (0-0.9); EOSINOPHILS % (AUTO) 3.3 % (0-6); HEMATOCRIT 27.1 % (35.0-45.0); HEMOGLOBIN 8.9 g/dl (12.0-16.0); LYMPHOCYTES # (AUTO) 1.5 X10'3 (1.1-4.8); LYMPHOCYTES % (AUTO) 13.6 % (21-51); MEAN CORPUSCULAR HEMOGLOBIN 28.9 PG (27.0-31.0); MEAN CORPUSCULAR HGB CONC 32.7 % (33.0-36.5); MEAN CORPUSCULAR VOLUME 88.2 FL (78-98); MEAN PLATELET VOLUME 8.7 FL (7.4-10.4); MONOCYTES # (AUTO) 0.4 X10'3 (0-0.9); MONOCYTES % (AUTO) 3.3 % (2-12); NEUTROPHILS # (AUTO) 8.8 X10'3 (1.8-7.7); NEUTROPHILS % (AUTO) 79.5 % (42-75); PLATELET COUNT 273 X10'3 (140-440); RED BLOOD COUNT 3.07 X10'6 (4.20-5.60); RED CELL DISTRIBUTION WIDTH 17.3 % (11.5-14.5); WHITE BLOOD COUNT 11.1 X10'3 (4.5-11.0)
[2018-01-17 05:39] LABS: ALANINE AMINOTRANSFERASE 21 U/L (12-78); ALBUMIN 2.2 G/DL (3.4-5.0); ALBUMIN/GLOBULIN RATIO 0.6 (1.1-1.5); ALKALINE PHOSPHATASE 103 IU/L (46-116); ANION GAP 6 (8-16); ASPARTATE AMINO TRANSFERASE 22 U/L (10-37); BILIRUBIN,TOTAL 0.4 MG/DL (0.1-1.0); BLOOD UREA NITROGEN 11 MG/DL (7-18); BUN/CREATININE RATIO 10.4 (6.6-38.0); CALCIUM 8.1 MG/DL (8.5-10.1); CHLORIDE 105 MMOL/L (99-107); CREATININE 1.06 MG/DL (0.40-0.90); GLUCOSE 129 MG/DL (70-104); POTASSIUM 3.9 MMOL/L (3.5-5.1); SODIUM 138 MMOL/L (135-145); TOTAL CARBON DIOXIDE 27.3 MMOL/L (24-32); TOTAL PROTEIN 5.7 G/DL (6.4-8.2); eGFR 53 ML/MIN
[2018-01-17 06:00] VITALS: BP 143/69
[2018-01-17] MEDS: K and/or MAG REPLACEMENT MC SCH (08:00)
[2018-01-17] MEDS: apixaban 5mg tablet PO SCH ×2 (08:49→19:28)
[2018-01-17] MEDS: clopidogrel 75mg tablet PO SCH (08:49)
[2018-01-17] MEDS: fluconazole 100mg tablet PO SCH (08:49)
[2018-01-17] MEDS: pantoprazole 40mg Tablet.DR PO SCH (08:49)
[2018-01-17] MEDS: levoTHYROXINE 100mcg tablet PO SCH (08:49)
[2018-01-17] MEDS: lamoTRIgine 100mg tablet PO SCH (08:49)
[2018-01-17] MEDS: potassium chloride 8mEq ER tablet PO SCH (08:49)
[2018-01-17] MEDS: atorvastatin 10mg tablet PO SCH (08:49)
[2018-01-17] MEDS: aripiprazole 5mg tablet PO SCH (08:49)
[2018-01-17] MEDS: sertraline 50mg tablet PO SCH (08:50)
[2018-01-17] MEDS: amiodarone 200mg tablet PO SCH ×2 (08:50→19:28)
[2018-01-17] MEDS: busPIRone 15mg tablet PO SCH ×2 (08:50→19:28)
[2018-01-17] MEDS: carvedilol 6.25mg tablet PO SCH ×2 (08:50→19:28)
[2018-01-17 11:00] VITALS: BP 112/48
[2018-01-17] MEDS: HYDROcodone/acetaminophen 10/325mg tab PO PRN ×2 (12:13→21:28)
[2018-01-17 15:00] VITALS: BP 111/54
[2018-01-17 18:00] VITALS: BP 105/53
[2018-01-17] MEDS: doxepin 25mg capsule PO SCH (19:27)
[2018-01-17 22:00] VITALS: BP 119/55
[2018-01-18 02:00] VITALS: BP 130/61
[2018-01-18] MEDS: metoclopramide 5 mg/ml inj IV SCH ×3 (02:32→14:00)
[2018-01-18 04:35] LABS: BASOPHILS % (AUTO) 0.1 % (0-1); EOSINOPHILS # (AUTO) 0.3 X10'3 (0-0.9); EOSINOPHILS % (AUTO) 2.6 % (0-6); HEMATOCRIT 27.4 % (35.0-45.0); HEMOGLOBIN 8.9 g/dl (12.0-16.0); LYMPHOCYTES # (AUTO) 1.6 X10'3 (1.1-4.8); LYMPHOCYTES % (AUTO) 14.6 % (21-51); MEAN CORPUSCULAR HEMOGLOBIN 28.9 PG (27.0-31.0); MEAN CORPUSCULAR HGB CONC 32.6 % (33.0-36.5); MEAN CORPUSCULAR VOLUME 88.6 FL (78-98); MEAN PLATELET VOLUME 8.6 FL (7.4-10.4); MONOCYTES # (AUTO) 0.5 X10'3 (0-0.9); NEUTROPHILS # (AUTO) 8.4 X10'3 (1.8-7.7); NEUTROPHILS % (AUTO) 77.7 % (42-75); PLATELET COUNT 278 X10'3 (140-440); RED BLOOD COUNT 3.09 X10'6 (4.20-5.60); RED CELL DISTRIBUTION WIDTH 17.4 % (11.5-14.5); WHITE BLOOD COUNT 10.8 X10'3 (4.5-11.0)
[2018-01-18 05:14] LABS: ALANINE AMINOTRANSFERASE 22 U/L (12-78); ALBUMIN 2.3 G/DL (3.4-5.0); ALBUMIN/GLOBULIN RATIO 0.7 (1.1-1.5); ALKALINE PHOSPHATASE 98 IU/L (46-116); ANION GAP 5 (8-16); ASPARTATE AMINO TRANSFERASE 16 U/L (10-37); BILIRUBIN,TOTAL 0.5 MG/DL (0.1-1.0); BLOOD UREA NITROGEN 12 MG/DL (7-18); BUN/CREATININE RATIO 13.2 (6.6-38.0); CALCIUM 8.4 MG/DL (8.5-10.1); CHLORIDE 106 MMOL/L (99-107); CREATININE 0.91 MG/DL (0.40-0.90); GLUCOSE 130 MG/DL (70-104); POTASSIUM 3.8 MMOL/L (3.5-5.1); SODIUM 140 MMOL/L (135-145); TOTAL CARBON DIOXIDE 28.7 MMOL/L (24-32); TOTAL PROTEIN 5.8 G/DL (6.4-8.2); eGFR 63 ML/MIN
[2018-01-18 06:00] VITALS: BP 121/79
[2018-01-18] MEDS: levoTHYROXINE 100mcg tablet PO SCH (07:59)
[2018-01-18] MEDS: K and/or MAG REPLACEMENT MC SCH (08:00)
[2018-01-18] MEDS: pantoprazole 40mg Tablet.DR PO SCH (08:00)
[2018-01-18] MEDS: aripiprazole 5mg tablet PO SCH (08:01)
[2018-01-18] MEDS: busPIRone 15mg tablet PO SCH (08:02)
[2018-01-18] MEDS: carvedilol 6.25mg tablet PO SCH (08:03)
[2018-01-18] MEDS: amiodarone 200mg tablet PO SCH (08:03)
[2018-01-18] MEDS: apixaban 5mg tablet PO SCH (08:04)
[2018-01-18] MEDS: potassium chloride 8mEq ER tablet PO SCH (08:04)
[2018-01-18] MEDS: lamoTRIgine 100mg tablet PO SCH (08:05)
[2018-01-18] MEDS: atorvastatin 10mg tablet PO SCH (08:06)
[2018-01-18] MEDS: gabapentin 300mg capsule PO SCH (08:07)
[2018-01-18] MEDS: clopidogrel 75mg tablet PO SCH (08:08)
[2018-01-18] MEDS: sertraline 50mg tablet PO SCH (08:09)
[2018-01-18] MEDS: magnesium oxide 400mg tablet PO SCH (10:00)
[2018-01-18] MEDS: fluconazole 100mg tablet PO SCH (10:00)
[2018-01-18] MEDS ORDERED: LEVO100T9 PO (10:49)
[2018-01-18] MEDS ORDERED: AMIO200T40 PO (10:49)
[2018-01-18] MEDS ORDERED: PANT40TA4 PO (10:49)
[2018-01-18] MEDS ORDERED: FLUC100T9 PO (10:49)
[2018-01-18] MEDS ORDERED: PROC10TA10 PO (10:49)
[2018-01-18] MEDS ORDERED: CARV6.253 PO (10:49)
[2018-01-18 11:00] VITALS: BP 148/55
[2018-01-18 11:35] VITALS: BP 148/55
[2018-01-18] MEDS: HYDROcodone/acetaminophen 10/325mg tab PO PRN (11:52)
== END 2018-01-18 14:40 | disposition home health service (06) | DRG 270 ==
LOC: EDSTATUS 11:45 → PAS IN 01-05 05:10 → EDSTATUS 01-05 12:45 → CICU 2S 01-05 18:30 → SUR 3N 01-09 17:00 → PCU 3S 01-10 01:46
PROVIDERS: ADMIT Surgery; ATTEND Family Medicine
PROC: 5A1945Z Respiratory Ventilation, 24-96 Consecutive Hours (ICD-10-PCS; 2018-01-05)
PROC: 05HM33Z Insertion of Infusion Device into Right Internal Jugular Vein, Percutaneous Approach (ICD-10-PCS; 2018-01-05)
PROC: 041 Lower Arteries, Bypass (ICD-10-PCS; 2018-01-05)
PROC: 041 Lower Arteries, Bypass (ICD-10-PCS; 2018-01-05)
PROC: 06BY0ZZ Excision of Lower Vein, Open Approach (ICD-10-PCS; 2018-01-05)
PROC: 0KNL0ZZ Release Left Abdomen Muscle, Open Approach (ICD-10-PCS; 2018-01-05)
PROC: 0KNK0ZZ Release Right Abdomen Muscle, Open Approach (ICD-10-PCS; 2018-01-05)
PROC: 0WUF0JZ Supplement Abdominal Wall with Synthetic Substitute, Open Approach (ICD-10-PCS; principal; 2018-01-05 09:00)
DX: I73.9 Peripheral vascular disease, unspecified (principal); J96.20 Acute and chronic respiratory failure, unspecified whether with hypoxia or hypercapnia; Z68.42 Body mass index [BMI] 45.0-49.9, adult; K56.0 Paralytic ileus; I47.1 Supraventricular tachycardia; K43.2 Incisional hernia without obstruction or gangrene; D64.9 Anemia, unspecified; E03.9 Hypothyroidism, unspecified; E66.01 Morbid (severe) obesity due to excess calories; I99.8 Other disorder of circulatory system; F43.10 Post-traumatic stress disorder, unspecified; I48.0 Paroxysmal atrial fibrillation; F32.9 Major depressive disorder, single episode, unspecified; I10 Essential (primary) hypertension; K66.0 Peritoneal adhesions (postprocedural) (postinfection); E78.5 Hyperlipidemia, unspecified; J44.9 Chronic obstructive pulmonary disease, unspecified; Z88.5 Allergy status to narcotic agent; Z79.899 Other long term (current) drug therapy; Z79.01 Long term (current) use of anticoagulants; Z83.3 Family history of diabetes mellitus; Z80.9 Family history of malignant neoplasm, unspecified
CPT/HCPCS: 36415; 36600; 71045; 74176; 80048; 80053; 81003; 82803; 83735; 84132; 84439; 84443; 84478; 85018; 85025; 85610; 85730; 86885; 86900; 86901; 86902; 86922; 87070; 88302; 93005; 94002; 94003; 94640; 94668; 94760; 97116; 97161; 97530; A6212; A6213; A6251; A6253; A6255; A6257; A6258; A6402; A6449; A7000; A7015; C1758; C1768; C1781; C9113; J0282; J0690; J0694; J0780; J1100; J1170; J1580; J1644; J1650; J1940; J2001; J2250; J2405; J2704; J2765; J3010; J3475; J3480; J3490; J7030; J7040; J7120; P9045

== ENCOUNTER 2018-01-23 22:28 | Emergency (ER) | payer MEDICARE, MEDICAID ==
[~2018-01-23] VITALS: Ht 170.2 cm; Wt 136.4 kg
[~2018-01-23 22:28] MED LIST changes: +AMIO200T40 PO; +CARV6.253 PO; +FLUC100T9 PO; -IBUP-1985 PO; +LEVO100T9 PO; +PANT40TA4 PO; +PROC10TA10 PO
[2018-01-23 23:25] LABS: BASOPHILS % (AUTO) 0 % (0-1); EOSINOPHILS # (AUTO) 0.3 X10'3 (0-0.9); EOSINOPHILS % (AUTO) 2.6 % (0-6); HEMATOCRIT 31.5 % (35.0-45.0); HEMOGLOBIN 10.2 g/dl (12.0-16.0); LYMPHOCYTES % (AUTO) 8.2 % (21-51); MEAN CORPUSCULAR HEMOGLOBIN 28.5 PG (27.0-31.0); MEAN CORPUSCULAR HGB CONC 32.3 % (33.0-36.5); MEAN CORPUSCULAR VOLUME 88.2 FL (78-98); MEAN PLATELET VOLUME 8.1 FL (7.4-10.4); MONOCYTES # (AUTO) 0.3 X10'3 (0-0.9); MONOCYTES % (AUTO) 2.7 % (2-12); NEUTROPHILS # (AUTO) 10.7 X10'3 (1.8-7.7); NEUTROPHILS % (AUTO) 86.5 % (42-75); PLATELET COUNT 351 X10'3 (140-440); RED BLOOD COUNT 3.57 X10'6 (4.20-5.60); RED CELL DISTRIBUTION WIDTH 17.9 % (11.5-14.5); WHITE BLOOD COUNT 12.4 X10'3 (4.5-11.0)
[2018-01-23 23:27] LABS: CLARITY,URINE SLIGHTLY CLOUDY (Clear); COLOR,URINE YELLOW (Yellow); GLUCOSE, URINE NEGATIVE (Neg); KETONES,URINE NEGATIVE (Neg); LEUKOCYTE ESTERASE ,URINE SMALL (Neg); NITRITES, URINE POSITIVE (Neg); OCCULT BLOOD,URINE TRACE-LYSED (Neg); PH,URINE 5.5 (4.8-8.0); PROTEIN,URINE NEGATIVE (Neg); UROBILINOGEN,URINE 0.2 E.U/dL (0.2-1.0)
[2018-01-23 23:31] LABS: PROTHROMBIN TIME 10.4 SECONDS (9.0-12.0)
[2018-01-23 23:32] LABS: UA COLLECTION TYPE CLN CATCH MIDSTREAM
[2018-01-23 23:38] LABS: BACTERIA,URINE 3+ /HPF (Neg); SQUAMOUS EPITHELIAL CELL,UR FEW /LPF (FEW)
[2018-01-23 23:42] LABS: ALANINE AMINOTRANSFERASE 19 U/L (12-78); ALBUMIN 2.8 G/DL (3.4-5.0); ALBUMIN/GLOBULIN RATIO 0.6 (1.1-1.5); ALKALINE PHOSPHATASE 97 IU/L (46-116); ANION GAP 9 (8-16); ASPARTATE AMINO TRANSFERASE 20 U/L (10-37); BILIRUBIN,TOTAL 0.7 MG/DL (0.1-1.0); BLOOD UREA NITROGEN 10 MG/DL (7-18); BUN/CREATININE RATIO 9.2 (6.6-38.0); CHLORIDE 106 MMOL/L (99-107); CREATININE 1.09 MG/DL (0.40-0.90); GLUCOSE 128 MG/DL (70-104); POTASSIUM 4.3 MMOL/L (3.5-5.1); SODIUM 141 MMOL/L (135-145); TOTAL CARBON DIOXIDE 26.1 MMOL/L (24-32); TOTAL PROTEIN 7.3 G/DL (6.4-8.2); eGFR 51 ML/MIN
[2018-01-24] MEDS ORDERED: ondansetron/PF 4mg/2ml inj IV ONE (00:10)
[2018-01-24] MEDS ORDERED: normal saline 1000ml 1,000 ML IV ONE (00:10)
[2018-01-24] MEDS ORDERED: morphine 4 MG/ML inj SYRINge IV ONE (00:15)
[2018-01-24] MEDS ORDERED: iohexol 300mg/ml 100ml inj. ONE (00:16)
[2018-01-24 00:57] LABS: LIPASE 80 U/L (73-393); TROPONIN I < 0.04 NG/ML (0.0-0.05)
[2018-01-24] MEDS ORDERED: CefTRIAXone 2gm/D5W 50ml 50 ML IV ONE (01:40)
[2018-01-24] MEDS ORDERED: CIPR-259 PO (03:14)
[2018-01-24] MEDS ORDERED: HYDROcodone/acetaminophen 5mg/325mg tablet PO ONE (03:15)
[2018-01-24 03:21] VITALS: BP 105/47
== END 2018-01-24 03:48 | disposition home or self-care (01) ==
LOC: ER 22:29
DX: G89.18 Other acute postprocedural pain (principal); N39.0 Urinary tract infection, site not specified; J44.9 Chronic obstructive pulmonary disease, unspecified; F17.200 Nicotine dependence, unspecified, uncomplicated; Z98.61 Coronary angioplasty status; Z90.710 Acquired absence of both cervix and uterus; Z98.890 Other specified postprocedural states; Z88.5 Allergy status to narcotic agent; Z79.01 Long term (current) use of anticoagulants; Z79.899 Other long term (current) drug therapy
CPT/HCPCS: 36415; 74177; 80053; 81001; 83605; 83690; 84145; 84484; 85025; 85610; 87040; 87077; 87088; 87186; 96361; 96365; 96375; 99285; J0696; J2270; J2405; J7030; Q9967